=== PATIENT | male | born 1995 | race Caucasian/White ===

== ENCOUNTER 2022-11-02 16:53 | Inpatient (IN) | payer MEDICAID, SELFPAY ==
--- NOTE | 2022-11-02 17:03 | ED.C_ITS ---
HPI - Psych General: Chief Complaint: Psychiatric Symptoms Stated Complaint: 96 hour hold/voluntary Time Seen by Provider: 11/02/22 17:03 History of Present Illness: Mr Livingston is a 27-year-old male presenting to the emergency department for suicidal ideation and paranoia. Is unclear exactly how long has had symptoms however they have become more severe for at least the past year. Due to paranoia he has essentially been stuck in the trailer where he spent living. He does endorse occasional hallucinations with this and continued worsening paranoia. It is gotten to the point that he feels suicidal. At times he has difficulty with thoughts and has difficulty describing what he is feeling. Denies prior psychiatric hospitalizations or being on medication. Intensity of symptoms is severe. Course has worsened. No other specific changes in health, exacerbating, or alleviating factors identified. Duration: getting worse History of same: Yes Relieving factors: none Exacerbating factors: none Context: not taking psychiatric medications Associated psychiatric symptoms: suicidal ideation and racing thoughts Review of Systems General: Reports: 10 or more systems reviewed and unremarkable except in HPI and below PFSH ED PFSH: Medical History (Updated 11/14/22 @ 16:11 by Rohan Busch MD) No significant past medical history Surgical History (Updated 11/14/22 @ 16:11 by Rohan Busch MD) No significant past surgical history Physical Exam Const: COMMON NORMALS: alert GENERAL APPEARANCE: cooperative and well developed HENMT: COMMON NORMALS: normocephalic and atraumatic HEAD & SCALP: normocephalic and atraumatic Eye: COMMON NORMALS: conjunctivae normal CONJUNCTIVA: Yes conjunctivae normal SCLERA: sclerae normal Neck/C-Spine: COMMON NORMALS: supple GENERAL: Yes trachea midline Resp: COMMON NORMALS: clear to auscultation bilaterally EFFORT & INSPECTION: Yes able to speak in complete sentences AUSCULTATION: clear to auscultation bilaterally Cardio: COMMON NORMALS: regular rate and regular rhythm RATE: regular rate RHYTHM: regular rhythm GI: COMMON NORMALS: Soft to palpation PALPATION: Yes Soft to palpation and No Tenderness to palpation present (GI) PERCUSSION: normal to percussion Extremity: GENERAL: Yes normal exam except as noted and No edema Neuro: COMMON NORMALS: moves all extremities SENSORIUM/ORIENTATION: Yes alert and No Orientation impaired Psych: MOOD & AFFECT: Yes anxious and Yes fearful Course Vital Signs: Vital signs: Vital Signs Temperature 97.9 F 11/09/22 13:04 Pulse Rate 99 11/09/22 13:04 Respiratory Rate 17 11/09/22 13:04 Blood Pressure 137/81 11/09/22 13:04 Pulse Oximetry 98 11/09/22 13:04 Oxygen Delivery Me thod 11/08/22 20:24 MDM - Psych Medical Decision Making 27-year-old gentleman without known diagnosed psychiatric history presenting to the [facility] for metabolic evaluation. Patient is nontoxic and cooperative on exam. Affect is quite odd and at times is very difficult to identify specific course of symptoms. Last notable for mild hemoconcentration on hematologic panel. Metabolic panel without significant arrangement. ALT elevation of unclear significance, and absence of other symptoms likely nonspecific and can be further evaluated outpatient setting. Toxic ingestions negative. UDS only positive for THC. Given provided clinical history and physical exam there is no indication for imaging at this time. No recent laboratory studies for comparison. Patient given p.o. Ativan for anxiolysis. Given severity of symptoms in the context of undiagnosed mental illness the patient requires inpatient management for further psychiatric assessment, stabilization, and treatment. Most likely etiology of symptoms is unclear, perhaps major depression with psychotic features, other psychotic disorder, or schizophrenia. Based on ED evaluation at this point there is no obvious condition that would preclude the patient from inpatient management psychiatric concerns/symptoms. The results of ED evaluation were discussed with the patient including plan for admission due to requirement for level of care not available if discharged to prevent significant worsening/deterioration. Patient agreeable with plan. Discussed with psychiatry service who was agreeable to admit patient. Medical Records I reviewed the patient's medical records. Lab Data I reviewed the patient's lab results. 11/02/22 17:45 11/02/22 17:45 Laboratory Results WBC 11.5 10^3/uL (4.0-10.0) H 11/02/22 17:45 RBC 5.61 10^6/uL (4.1-5.3) H 11/02/22 17:45 Hgb 16.7 g/dL (11.7-16.6) H 11/02/22 17:45 Hct 48.4 % (42.0-52.0) 11/02/22 17:45 MCV 86.3 fl (80-94) 11/02/22 17:45 MCH 29.8 pg (28.0-34.0) 11/02/22 17:45 MCHC 34.5 g/dL (30.0-36.0) 11/02/22 17:45 RDW 12.4 % (12.1-15.1) 11/02/22 17:45 Plt Count 329 10^3/cmm (130-400) 11/02/22 17:45 MPV 9.0 fL (7.4-10.4) 11/02/22 17:45 Neut % (Auto) 75.2 % 11/02/22 17:45 Lymph % (Auto) 15.5 % 11/02/22 17:45 [place] % (Auto) 6.0 % 11/02/22 17:45 Eos % (Auto) 1.9 % 11/02/22 17:45 Baso % (Auto) 0.9 % 11/02/22 17:45 Neut # (Auto) 8.67 10^3/uL (1.8-7.7) H 11/02/22 17:45 Lymph # (Auto) 1.8 10^3/uL (0.8-4.8) 11/02/22 17:45 [place] # (Auto) 0.7 10^3/uL (0.2-0.9) 11/02/22 17:45 Eos # (Auto) 0.2 10^3/uL (0.0-0.8) 11/02/22 17:45 Baso # (Auto) 0.1 10^3/uL (0.0-0.1) 11/02/22 17:45 Nucleated RBC % (auto) 0 % 11/02/22 17:45 Nucleated RBCs # 0.0 /100WBC 11/02/22 17:45 Sodium 137 mmol/L (136-145) 11/02/22 17:45 Potassium 3.7 mmol/L (3.5-5.1) 11/02/22 17:45 Chloride 99 mmol/L (98-107) 11/02/22 17:45 Carbon Dioxide 23 mmol/L (22-29) 11/02/22 17:45 Anion Gap 18.7 (5-19) 11/02/22 17:45 BUN 11 mg/dL (6-20) 11/02/22 17:45 Creatinine 0.8 mg/dL (0.7-1.2) 11/02/22 17:45 GFR Calculation 115.1 mL/min (90-130) 11/02/22 17:45 Glucose 77 mg/dL (65-115) 11/02/22 17:45 Calculated Osmolality 282 mOsm/kg (285-295) L 11/02/22 17:45 Calcium 9.5 mg/dL (8.5-10.5) 11/02/22 17:45 Total Bilirubin 0.7 mg/dL (0.15-1.2) 11/02/22 17:45 AST 35 U/L (0-40) 11/02/22 17:45 ALT 74 U/L (0-41) H 11/02/22 17:45 Alkaline Phosphatase 73 U/L (40-130) 11/02/22 17:45 Total Protein 7.3 g/dL (6.6-8.7) 11/02/22 17:45 Albumin 4.6 g/dL (3.5-5.2) 11/02/22 17:45 Globulin 2.7 g/dL (1.3-4.6) 11/02/22 17:45 TSH 1.72 uIU/mL (0.27-4.20) 11/02/22 17:45 Salicylates < 0.3 mg/dL (3-10) L 11/02/22 17:45 Acetaminophen < 5.0 ug/mL (10-30) L 11/02/22 17:45 Ethyl Alcohol < 10 mg/dL (0-10) 11/02/22 17:45 Discharge Plan Discharge Patient Disposition: Admitted As Inpatient Admit Provider: Brandt Conrad Clinical Impression: Acute paranoia, Acute psychosis, Hallucinations Condition: Stable Discharge Diet: Regular Discharge Activity: Resume usual activity Coding Level of Care Code ED 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
[2022-11-02 17:04] VITALS: BP 175/114; PULSE 137; RESP 18; TEMP 36.9; O2SAT 97; BMI 40.3
[2022-11-02 18:10] LABS: Basophils # 0.1 10^3/uL (0.0-0.1); Basophils % 0.9 %; Eosinophils # 0.2 10^3/uL (0.0-0.8); Eosinophils % 1.9 %; Hematocrit 48.4 % (42.0-52.0); Hemoglobin 16.7 g/dL (11.7-16.6); Lymphocytes # 1.8 10^3/uL (0.8-4.8); Lymphocytes % 15.5 %; Mean Corpuscular HGB Conc 34.5 g/dL (30.0-36.0); Mean Corpuscular Hemoglobin 29.8 pg (28.0-34.0); Mean Corpuscular Volume 86.3 fl (80-94); Monocytes # 0.7 10^3/uL (0.2-0.9); Neutrophils # 8.67 10^3/uL (1.8-7.7); Neutrophils % 75.2 %; Nucleated Red Blood Cells % 0 %; Platelet Count 329 10^3/cmm (130-400); Red Blood Count 5.61 10^6/uL (4.1-5.3); Red Cell Distribution Width 12.4 % (12.1-15.1); White Blood Count 11.5 10^3/uL (4.0-10.0)
[2022-11-02 18:47] LABS: Alanine Aminotransferase 74 U/L (0-41); Albumin Level 4.6 g/dL (3.5-5.2); Alkaline Phosphatase 73 U/L (40-130); Anion Gap 18.7 (5-19); Aspartate Amino Transferase 35 U/L (0-40); Blood Urea Nitrogen 11 mg/dL (6-20); Calcium 9.5 mg/dL (8.5-10.5); Carbon Dioxide 23 mmol/L (22-29); Chloride 99 mmol/L (98-107); Globulin 2.7 g/dL (1.3-4.6); Glomerular Filtration Rate 115.1 mL/min (90-130); Glucose 77 mg/dL (65-115); Osmolality Calculated 282 mOsm/kg (285-295); Potassium 3.7 mmol/L (3.5-5.1); Sodium 137 mmol/L (136-145); Thyroid Stimulating Hormone 1.72 uIU/mL (0.27-4.20); Total Bilirubin 0.7 mg/dL (0.15-1.2); Total Protein 7.3 g/dL (6.6-8.7)
[2022-11-02 18:58] LABS: Acetaminophen < 5.0 ug/mL (10-30); Alcohol Level < 10 mg/dL (0-10); Salicylate < 0.3 mg/dL (3-10)
[2022-11-02 19:25] VITALS: BP 138/98; PULSE 96; RESP 18; O2SAT 97
[2022-11-02 20:30] VITALS: BP 148/98; PULSE 116; RESP 18; TEMP 36.4; O2SAT 96
[2022-11-02 21:28] LABS: Amphetamines Screen Urine Negative (Negative); Barbiturates Screen Urine Negative (Negative); Benzodiazepines Screen Urine Negative (Negative); Cocaine Screen Urine Negative (Negative); Opiate Screen Urine Negative (Negative); PCP Screen Urine Negative (Negative); THC Screen Urine Positive (Negative)
[2022-11-02 22:00] VITALS: BP 148/98; PULSE 116; RESP 18; TEMP 36.4; O2SAT 96
[2022-11-02] MEDS: nicotine 2 mg Gum BUCCAL (23:35)
[2022-11-02] MEDS: hyDROXYzine 25 mg Capsule 50 MG PO (23:41)
[2022-11-02] MEDS: trazodone 50 mg Tablet PO (23:41)
[2022-11-03] MEDS: nicotine 2 mg Gum BUCCAL (09:58)
--- NOTE | 2022-11-03 12:49 | P.NPUHP_ITS ---
Providers/Chief Complaint Admitting Physician: Brandt Conrad MD Chief Complaint: 96 hour hold/voluntary HPI NPU History of Present Illness Gustavo Livingston is a 27 year old male who reports no previous history of inpatient psychiatric treatment who reports that he was brought to the emergency department by his mother with suicidal ideation and increased paranoia. Patient reports that he is been having a bad feeling like something bad was going to happen and states that he has had this uncomfortable feeling for several years. He reports that on October 27, 2022 he had a major discovery that he describes as being life-changing. He states that he feels that he has 2 different groups raging war and has had with 1 group stating that he needs to keep the information secret while another group is telling him to divulge the information. He states that he currently feels that he cannot divulge all of the information out of fear that the government will come after him. He has reported that he feels strongly like someone is trying to frame him. He reports that others here have the ability somehow to read his mind and can somehow influence him. He had reported that prior to October 27, he had simply felt that something was wrong but the information and the thoughts and believes regarding the 2 warning parties in his mind revealed themselves on that day. He had reported that this information has been extremely stressful to manage and that he had been thinking about suicide but minimized any plan. He did state that he has been struggling with anhedonia, amotivation, depressed mood and i ncreased feelings of hopelessness for the past week. Patient reports having increased problems with concentration and states that he is distracted easily. He reports that he is not this nearly hearing 2 voices but did report that he has been having some intrusive thoughts and states that he now understands their intention. The patient denied any visual hallucinations. He reported that he had been sleeping excessively and had been feeling like sleeping all day. He had reported occasional alcohol use and occasional marijuana use. He had denied any other drug use recently. He denied any history of willian. He has reported having increased anxiety and worry regarding these thoughts. He had reported that he had received some recent information regarding a father that he has no contact with that suggested that his father had had some undue influence on him for several years and reported that he was uncertain about revealing this information to the telegraphic typewriter installer of this note out of concern that he may be framed or incarcerated. Past psychiatric history: Patient has reported no previous inpatient hospitalization. He had reported in the past having seen a psychiatrist briefly and a therapist 1 other time. He had reported having been tried previously on Prozac for depression but was not specific about how long ago he had been on this medication. Current medications: None Surgeries: Left knee surgery Allergies: Clarithromycin Medical history: None Legal history: None Family psychiatric history: None Drug and alcohol history: See above, history of half pack to 1 pack/day smoker Social history: Patient was born in [facility] and raised by his mother. He reports that he had never known his biological father. He states that he has an older half-sister and states that he had an older brother and older sister who had in a fire when he was in preschool. He denies any history of sexual physical or emotional abuse. 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 He reports that he is never been and has no children. He is currently not dating and describes himself as an atheist. He currently lives with his mother and [place]. Meds NPU Home Medications Medication Instructions Recorded Confirmed Last Taken Type No Known Home Medications 11/03/22 11/03/22 Unknown History Allergies Allergy/AdvReac Type Severity Reaction Status Date / Time clarithromycin [From Biaxin] Allergy ALGY-Rash Verified 11/02/22 18:58 Mental Status Exam MSE Comments: Patient is a disheveled white male who appeared his stated age with poor hygiene and a normal gait. There was no evidence of any abnormal involuntary motor movements tics or tremors appreciated. His eye contact was variable. Speech was somewhat slow and deliberate with some increased latency of speech noted at times. His mood was described as depressed. His affect was blunted. His thought process was linear but at times illogical. His thought content showed clear evidence of delusional thinking with active paranoia and clear ideas of reference. There was evidence of continued thought blocking throughout the interview and he did appear to be responding to internal stimuli. His attention span appeared poor. His recent remote memory were not tested formally. His insight was poor. His judgment appeared to be poor. His impulse control was guarded. Vitals/I&O/Wt Last Vital Signs Temp 97.6 F 11/02/22 22:00 Pulse 116 H 11/02/22 22:00 Resp 18 11/02/22 22:00 BP 148/98 11/02/22 22:00 Pulse Ox 96 11/02/22 22:00 O2 Del Method 11/02/22 22:48 Weight last 48 hrs Weight 113.398 kg Data NPU 11/02/22 17:45 11/02/22 17:45 A&P Assessment and plan (1) Psychotic disorder with delusions: (2) Depressive disorder: Plan Patient is a 27-year-old white male with a history of reported depression in the past who appears to have been having anacute psychotic break with unclear triggers but clear reports of decline in functioning particularly worse over the last week but possibly gradually over a longer period of time. #1. 15-minute checks for safety on the unit. #2. Encourage sober living treatment on the unit at the highest level of care to which the patient is willing to commit. 3. Engage patient in individual group and milieu therapy. #4. Patient was agreeable to a trial of Abilify to target psychotic symptoms. Risks and benefits of medication were explained to the patient who was agreeable. Involuntary Hold Information 96 Hour Hold: 96 Hour Involuntary Admission: No Attestations NPU Medical Necessity Statement*: Inpatient hospitalization is medically necessary at this time and the clinically appropriate intervention at this time. We will monitor medications and make changes as indicated. The patient will be in the hospital for over 2 midnights. Is likely length of stay is 7 to 10 days. Coding Level of Care Code New Pt Acute Code for Chg Fwd Patient Type New History Problem Focused Exam Problem Focused Medical Decision Making Straight Forward Diagnoses Psychotic disorder with delusions F29 Depressive disorder F32.A
[2022-11-03 14:00] VITALS: BP 124/84; PULSE 103; RESP 18; TEMP 37; O2SAT 96
[2022-11-03] MEDS: ARIPiprazole 10 mg Tablet 5 MG PO (14:27)
--- NOTE | 2022-11-03 17:41 | PC.NURSE ---
Patient in room at present. Denies SI/HI; AVH. Started on Abilify %mg as ordered per MD. Nurse educated and monitored for adverse reation. No s/sx of adverse reaction noted.
[2022-11-03 22:00] VITALS: RESP 18
[2022-11-04] MEDS: nicotine 2 mg Gum BUCCAL ×2 (08:03→18:10)
[2022-11-04] MEDS: ARIPiprazole 10 mg Tablet 5 MG PO ×2 (08:27→15:43)
[2022-11-04 14:00] VITALS: BP 123/82; PULSE 87; RESP 16; TEMP 37.2; O2SAT 96
--- NOTE | 2022-11-04 14:51 | P.NPUPN_ITS ---
Subjective NPU Subjective: Gustavo is a 27-year-old white male admitted with active paranoia increased depression suicidal ideation and possible auditory hallucinations. He was started on Abilify last night with no reported side effects. He continued to report that he was uncertain about revealing information to the curriculum writer of this note out of concern that he could increase his likelihood of being in trouble with the government. He had reported that he had continued to feel suspicious of others intentions. He had reported that he had had an extended period over the last 2 years of feeling as if something was wrong but stated that the 2 competing parties in his mind were present and he was uncertain as to whether he should reveal this information or keep it hidden. Mental Status Exam MSE Comments: Patient is a disheveled white male who appeared his stated age with fair hygiene and a normal gait. There was no evidence of any abnormal involuntary motor movements tics or tremors appreciated. His eye contact was variable. Speech was normal in rate, and deliberate with some increased latency of speech noted at times. His mood was described as anxious. His affect was blunted. His thought process was linear but at times illogical. His thought content showed clear evidence of delusional thinking with active paranoia and clear ideas of reference. There was evidence of occasional thought blocking throughout the interview and he did appear to be responding to internal stimuli. His attention span appeared poor. His recent remote memory were not tested formally. His insight was poor. His judgment appeared to be poor. His impulse control was guarded. Vitals/I&O/Wt Last Vital Signs Temp 98.6 F 11/03/22 14:00 Pulse 103 H 11/03/22 14:00 Resp 18 11/03/22 22:00 BP 124/84 11/03/22 14:00 Pulse Ox 96 11/03/22 14:00 O2 Del Method 11/03/22 14:00 Weight last 48 hrs Weight 113.398 kg Weight 113.398 kg Data NPU 11/02/22 17:45 11/02/22 17:45 A&P Assessment and plan (1) Psychotic disorder with delusions: (2) Depressive disorder: Plan Patient is a 27-year-old white male with a history of reported depression in the past who appears to have been having anacute psychotic break with unclear triggers but clear reports of decline in functioning particularly worse over the last week but possibly gradually over a longer period of time. #1. 15-minute checks for safety on the unit. #2. Encourage sober living treatment on the unit at the highest level of care to which the patient is willing to commit. 3. Engage patient in individual group and milieu therapy. #4. Increase Abilify to 10mg in am Involuntary Hold Information 96 Hour Hold: 96 Hour Involuntary Admission: No Attestations NPU Medical Necessity Statement*: Inpatient hospitalization is medically necessary at this time and the clinically appropriate intervention at this time. We will monitor medications and make changes as indicated. The patient's likely length of stay is 7 to 10 days. Coding Level of Care Code Established Pt Acute Code for Chg Fwd Patient Type Established History Problem Focused Exam Problem Focused Medical Decision Making Straight Forward Diagnoses Psychotic disorder with delusions F29 Depressive disorder F32.A
--- NOTE | 2022-11-04 16:40 | PC.NURSE ---
At 1540 pt was informed the MD had directed he have an additional 5 mg of Abilify today as he was increasing the pt's dose to 10 mg/day. Pt verbalized his understanding. He had no questions about his medication. Remains in day room watching tv.
[2022-11-04 22:00] VITALS: BP 136/82; PULSE 91; RESP 18; TEMP 36.7; O2SAT 97
[2022-11-05 06:00] VITALS: BP 128/81; PULSE 76; RESP 18; TEMP 36.7; O2SAT 97
[2022-11-05] MEDS: ARIPiprazole 10 mg Tablet PO (08:39)
[2022-11-05] MEDS: nicotine 2 mg Gum BUCCAL ×2 (08:50→14:00)
[2022-11-05 14:00] VITALS: BP 137/96; PULSE 75; RESP 18; TEMP 37.1; O2SAT 94
--- NOTE | 2022-11-05 16:14 | P.NPUPN_ITS ---
Subjective NPU Subjective: Gustavo is a 27-year-old white male admitted with active paranoia increased depression suicidal ideation and possible auditory hallucinations. The patient reported no difference currently on his medications. He reported no side effects from the medication. He states that he continued to be distracted by his thoughts. Collateral information provided by the mother had revealed that the patient had been having some diminished level of functioning over the past 2 years with increased isolation and greater paranoia noted even prior to the last 10 days. He had continue to report stress regarding government targeting as he stated that his information would be frowned upon by the [employer] and he did not wish to reveal that information at this time but stated that his father may have been involved in something. Mental Status Exam MSE Comments: Patient is a disheveled white male who appeared his stated age with fair hygiene and a normal gait. There was no evidence of any abnormal in voluntary motor movements tics or tremors appreciated. His eye contact was variable. Speech was normal in rate, and deliberate with some increased latency of speech noted at times and monotone in quality. His mood was described as okay. His affect was blunted and mood incongruent.. His thought process was linear but at times illogical. His thought content showed clear evidence of delusional thinking with active paranoia and clear ideas of reference. There was evidence of occasional thought blocking throughout the interview and he did appear to be responding to internal stimuli. His attention span appeared poor. His recent remote memory were not tested formally. His insight was poor. His judgment appeared to be poor. His impulse control was guarded. Vitals/I&O/Wt Last Vital Signs Temp 98.8 F 11/05/22 14:00 Pulse 75 11/05/22 14:00 Resp 18 11/05/22 14:00 BP 137/96 11/05/22 14:00 Pulse Ox 94 11/05/22 14:00 O2 Del Method 11/04/22 22:00 Weight last 48 hrs Weight 113.398 kg Data NPU 11/02/22 17:45 11/02/22 17:45 A&P Assessment and plan (1) Psychotic disorder with delusions: (2) Depressive disorder: Plan Patient is a 27-year-old white male with a history of reported depression in the past who appears to have been having anacute psychotic break with unclear triggers but clear reports of decline in functioning particularly worse over the last week but possibly gradually over a longer period of time. #1. 15-minute checks for safety on the unit. #2. Encourage sober living treatment on the unit at the highest level of care to which the patient is willing to commit. 3. Engage patient in individual group and milieu therapy. #4. Increase Abilify to 15mg tommorow. Involuntary Hold Information 96 Hour Hold: 96 Hour Involuntary Admission: No Attestations NPU Medical Necessity Statement*: Inpatient hospitalization is medically necessary at this time and the clinically appropriate intervention at this time. We will monitor medications and make changes as indicated. The patient's likely length of stay is 7 to 10 days. Coding Level of Care Code Established Pt Acute Code for Chg Fwd Patient Type Established History Problem Focused Exam Problem Focused Medical Decision Making Straight Forward Diagnoses Psychotic disorder with delusions F29 Depressive disorder F32.A
[2022-11-05 21:13] VITALS: BP 131/95; PULSE 86; RESP 18; TEMP 36.9; O2SAT 94
[2022-11-06] MEDS: ARIPiprazole 10 mg Tablet PO (08:53)
[2022-11-06] MEDS: nicotine 2 mg Gum BUCCAL ×2 (08:54→20:10)
[2022-11-06 14:00] VITALS: BP 122/85; PULSE 80; RESP 18; TEMP 37.1; O2SAT 96
--- NOTE | 2022-11-06 17:29 | W.PM.NPUPNS ---
Subjective NPU Subjective: Gustavo is a 27-year-old white male admitted with active paranoia increased depression suicidal ideation and possible auditory hallucinations. He reports improved ability to tolerate stress and states that he has been less worried by the thoughts in his head. He stated that he had been feeling much better. He reported no suicidal thoughts. He had complained of constipation over the last few days. He had reported having less worry about government influence and continued to report that he had been indeed isolating over the past several years at home. He had been able to attend groups today without difficulty. He had endorsed to staff some thoughts of d?j? vu and states that at times he had felt that his life had been preplanned. Mental Status Exam MSE Comments: Patient is a white male who appeared his stated age with fair hygiene and a normal gait. There was no evidence of any abnormal involuntary motor movements tics or tremors appreciated. His eye contact was variable. Speech was normal in rate, and some mild increased latency in speech noted at times and monotone in quality. His mood was described as better. His affect was blunted and mood incongruent.. His thought process was linear and more logical today. His thought content showed clear evidence of paranoia but there did appear to be some diminishment in regards to ideas of reference. He did not appear to be responding to internal stimuli. His attention span appeared better. His recent remote memory were not tested formally. His insight was poor. His judgment appeared to be poor. His impulse control was guarded. Vitals/I&O/Wt Last Vital Signs Temp 98.8 F 11/06/22 14:00 Pulse 80 11/06/22 14:00 Resp 18 11/06/22 14:00 BP 122/85 11/06/22 14:00 Pulse Ox 96 11/06/22 14:00 O2 Del Method 11/05/22 21:13 Data NPU 11/02/22 17:45 11/02/22 17:45 A&P Assessment and plan (1) Psychotic disorder with delusions: (2) Depressive disorder: Plan Patient is a 27-year-old white male with a history of reported depression in the past who appears to have been having an acute psychotic break with unclear triggers but clear reports of decline in functioning particularly worse over the last week but possibly gradually over a longer period of time. #1. 15-minute checks for safety on the unit. #2. Encourage sober living treatment on the unit at the highest level of care to which the patient is willing to commit. 3. Engage patient in individual group and milieu therapy. #4. Increase Abilify to 15mg tommorow. Appears to be showing some improvement already. Involuntary Hold Information 96 Hour Hold: 96 Hour Involuntary Admission: No Attestations NPU Medical Necessity Statement*: Inpatient hospitalization is medically necessary at this time and the clinically appropriate intervention at this time. We will monitor medications and make changes as indicated. The patient's likely length of stay is 7 to 10 days. Coding Level of Care Code Established Pt Acute Code for Chg Fwd Patient Type Established History Problem Focused Exam Problem Focused Medical Decision Making Straight Forward Diagnoses Psychotic disorder with delusions F29 Depressive disorder F32.A
[2022-11-06] MEDS: magnesium hydroxide 30 mL UDC PO (20:31)
[2022-11-06 20:51] VITALS: BP 133/95; PULSE 98; RESP 18; TEMP 36.9; O2SAT 95
[2022-11-07] MEDS: ARIPiprazole 10 mg Tablet 15 MG PO (08:50)
[2022-11-07 14:00] VITALS: BP 128/87; PULSE 89; RESP 18; TEMP 37.2; O2SAT 96
--- NOTE | 2022-11-07 17:00 | W.PM.NPUPNS ---
Subjective NPU Subjective: Gustavo is a 27-year-old white male admitted with active paranoia increased depression suicidal ideation and possible auditory hallucinations. Patient had reported feeling better and stated he was hopeful to return soon. He denied any depression. He had reported a relief of constipation with medication. He reports that he has been feeling more motivated and states that he has been less worried about being in trouble with the government. He stated that he had been pleased that his thoughts had been clear and acknowledged having a problem with his thoughts for a greater period of time possibly up to 2 years with reports of increased worry about the conflict and has had beginning approximately 10 days ago. He denied hearing any voices at this time although staff had stated that the patient at times did appear to be preoccupied by his thoughts. He had been able to attend groups without any difficulty. Mental Status Exam MSE Comments: Patient is a white male who appeared his stated age with fair hygiene and a normal gait. He was pleasant and cooperative on interview. There was no evidence of any abnormal involuntary motor movements tics or tremors appreciated. His eye contact was variable. Speech was normal in rate, rhythm, and no increase in speech latency was appreciated. His mood was described as better. His affect remains somewhat flat.. His thought process was linear and more logical today. His thought content showed less evidence of paranoia and less self-referential ideas noted. He did not appear to be responding to internal stimuli. His attention span appeared better. His recent remote memory were not tested formally. His insight was improving. His judgment appeared to be poor. His impulse control was guarded. Vitals/I&O/Wt Last Vital Signs Temp 98.9 F 11/07/22 14:00 Pulse 89 11/07/22 14:00 Resp 18 11/07/22 14:00 BP 128/87 11/07/22 14:00 Pulse Ox 96 11/07/22 14:00 O2 Del Method 11/05/22 21:13 Data NPU 11/02/22 17:45 11/02/22 17:45 A&P Assessment and plan (1) Psychotic disorder with delusions: (2) Depressive disorder: Plan Patient is a 27-year-old white male with a history of reported depression in the past who appears to have been having an acute psychotic break with unclear triggers but clear reports of decline in functioning particularly worse over the last week but possibly gradually over a longer period of time. #1. 15-minute checks for safety on the unit. #2. Encourage sober living treatment on the unit at the highest level of care to which the patient is willing to commit. 3. Engage patient in individual group and milieu therapy. #4. Continue Abilify at 15mg/day. Appears to be showing some improvement , discharge soon. Involuntary Hold Information 96 Hour Hold: 96 Hour Involuntary Admission: No Attestations NPU Medical Necessity Statement*: Inpatient hospitalization is medically necessary at this time and the clinically appropriate intervention at this time. We will monitor medications and make changes as indicated. The patient's likely length of stay is 1-2 days. Coding Level of Care Code Established Pt Acute Code for Chg Fwd Patient Type Established History Problem Focused Exam Problem Focused Medical Decision Making Straight Forward Diagnoses Psychotic disorder with delusions F29 Depressive disorder F32.A
[2022-11-07 21:03] VITALS: BP 137/89; PULSE 100; RESP 17; TEMP 37; O2SAT 95
[2022-11-07] MEDS: nicotine 2 mg Gum BUCCAL (22:24)
[2022-11-08] MEDS: ARIPiprazole 10 mg Tablet 15 MG PO (09:23)
[2022-11-08] MEDS: nicotine 2 mg Gum BUCCAL ×2 (09:24→17:45)
[2022-11-08 14:00] VITALS: BP 137/87; PULSE 95; RESP 18; TEMP 37.2; O2SAT 96
--- NOTE | 2022-11-08 20:14 | W.PM.NPUPNS ---
Subjective NPU Subjective: Patient presented today reporting that he has improved well and he chronicled the medication administration and increase in dosing during the hospitalization. He reports improvement in symptoms and identified that the thoughts he was having upon admission were irrational. He discussed feeling better and wanting to return to work and we discussed the likelihood of discharge in the next 48 hours. Mental Status Exam MSE Comments: This is an overweight versus obese white male in hospital scrubs with adequate grooming and eye contact. No abnormal movements except for mild psychomotor retardation. Cooperative with exam in no acute distress. Speech was normal in rate, rhythm, volume and no increase in speech latency was appreciated. His mood was described as better. His affect remains somewhat flat but appear euthymic trending. His thought process was linear and more logical today. His thought content showed less evidence of paranoia and less self-referential ideas noted. He was able to identify the delusional suicidal thoughts he was having as irrational and he did not appear to be responding to internal stimuli. His attention and concentration appeared appropriate and his recent remote memory appeared fair but neither were tested formally. His insight and judgment were improving his impulse control was was appropriate on the unit. Vitals/I&O/Wt Last Vital Signs Temp 97.4 F L 11/08/22 20:24 Pulse 112 H 11/08/22 20:24 Resp 17 11/08/22 20:24 BP 137/88 11/08/22 20:24 Pulse Ox 98 11/08/22 20:24 O2 Del Method 11/08/22 20:24 Data NPU 11/02/22 17:45 11/02/22 17:45 A&P Assessment and plan (1) Psychotic disorder with delusions: (2) Depressive disorder: Plan Patient is a 27-year-old white male with a history of reported depression in the past who appears to have been having an acute psychotic break with unclear triggers but clear reports of decline in functioning particularly worse over the last week but possibly gradually over a longer period of time. 1. 15-minute checks for safety on the unit. 2. Encourage sober living treatment on the unit at the highest level of care to which the patient is willing to commit. 3. Engage patient in individual group and milieu therapy. 4. Continue Abilify at 15mg/day. Appears to be showing some improvement. 5. Tentative plan for discharge in the morning. Involuntary Hold Information 96 Hour Hold: 96 Hour Involuntary Admission: No Attestations NPU Medical Necessity Statement*: Inpatient hospitalization is medically necessary at this time and the clinically appropriate intervention at this time. We will monitor medications and make changes as indicated. Plan for discharge in the morning. Coding Level of Care Code Acute Code for Chg Fwd Diagnoses Psychotic disorder with delusions F29 Depressive disorder F32.A
[2022-11-08 20:24] VITALS: BP 137/88; PULSE 112; RESP 17; TEMP 36.3; O2SAT 98
[2022-11-09] MEDS: ARIPiprazole 10 mg Tablet 15 MG PO (09:14)
[2022-11-09] MEDS: nicotine 2 mg Gum BUCCAL (11:16)
[2022-11-09 13:04] VITALS: BP 137/81; PULSE 99; RESP 17; TEMP 36.6; O2SAT 98
--- NOTE | 2022-11-09 13:05 | P.NPUDS_ITS ---
Diagnoses at Discharge Discharge Diagnosis (1) Psychotic disorder with delusions: Status: Acute (2) Depressive disorder: Status: Acute Reason for Visit Reason for Visit: 96 hour hold/voluntary Brief History: History of Present Illness Gustavo Livingston is a 27 year old male who reports no previous history of inpatient psychiatric treatment who reports that he was brought to the emergency department by his mother with suicidal ideation and increased paranoia. Patient reports that he is been having a bad feeling like something bad was going to happen and states that he has had this uncomfortable feeling for several years. He reports that on October 27, 2022 he had a major discovery that he describes as being life-changing. He states that he feels that he has 2 different groups raging war and has had with 1 group stating that he needs to keep the information secret while another group is telling him to divulge the information. He states that he currently feels that he cannot divulge all of the information out of fear that the government will come after him. He has reported that he feels strongly like someone is trying to frame him. He reports that others here have the ability somehow to read his mind and can somehow influence him. He had reported that prior to October 27, he had simply felt that something was wrong but the information and the thoughts and believes regarding the 2 warning parties in his mind revealed themselves on that day. He had reported that this information has been extremely stressful to manage and that he had been thinking about suicide but minimized any plan. He did state that he has been struggling with anhedonia, amotivation, depressed mood and increased feelings of hopelessness for the past week. Patient reports having increased problems with concentration and states that he is distracted easily. He reports that he is not this nearly hearing 2 voices but did report that he has been having some intrusive thoughts and states that he now understands their intention. The patient denied any visual hallucinations. He reported that he had been sleeping excessively and had been feeling like sleeping all day. He had reported occasional alcohol use and occasional marijuana use. He had denied any other drug use recently. He denied any history of willian. He has reported having increased anxiety and worry regarding these thoughts. He had reported that he had received some recent information regarding a father that he has no contact with that suggested that his father had had some undue influence on him for several years and reported that he was uncertain about revealing this information to the field underwriter of this note out of concern that he may be framed or incarcerated. Past psychiatric history: Patient has reported no previous inpatient hospitalization. He had reported in the past having seen a psychiatrist briefly and a therapist 1 other time. He had reported having been tried previously on Prozac for depression but was not specific about how long ago he had been on this medication. Current medications: None Surgeries: Left knee surgery Allergies: Clarithromycin Medical history: None Legal history: None Family psychiatric history: None Drug and alcohol history: See above, history of half pack to 1 pack/day smoker Social history: Patient was born in [facility] and raised by his mother. He reports that he had never known his biological father. He states that he has an older half-sister and states that he had an older brother and older sister who had in a fire when he was in preschool. He denies any history of sexual physical or emotional abuse. 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 He reports that he is never been and has no children. He is currently not dating and describes himself as an atheist. He currently lives with his mother and [place]. Hospital Course Hospital Course He quickly acclimated to the individual, group and milieu therapies provided. He was started on Abilify 5 mg and that was titrated to 15 mg po qdaily. He demonstrated significant improvement. He worked with the treatment team for discharge planning and follow up. During the hospitalization, patient had routine laboratory studies which were within normal limits except for few outliers.? Additionally there was a general medical evaluation which was also within normal limits and revealed no new acute processes. Discharge Summary: At the time of discharge, he denied psychosis or lethality.? Mood and anxiety were well managed.? Patient endorsed a plan to avoid all drugs of abuse and follow-up with the aftercare recommendations of the treatment team.? Patient was evaluated and deemed to be absent credible lethality, and had achieved the maximum benefit from an inpatient hospitalization, so was discharged. Involuntary Hold Information 96 Hour Hold: 96 Hour Involuntary Admission: No Mental Status Exam MSE Comments: This is an overweight versus obese white male in hospital scrubs with adequate grooming and eye contact. No abnormal movements. Cooperative with exam in no acute distress. Speech was normal in rate, rhythm, volume and no increase in speech latency was appreciated. His mood was described as better. His affect is euthymic. His thought process was linear and more logical today. His thought content showed less evidence of paranoia and less self-referential ideas noted. He was able to identify the delusional suicidal thoughts he was having as irrational and he did not appear to be responding to internal stimuli. His attention and concentration appeared appropriate and his recent remote memory appeared fair but neither were tested formally. His insight and judgment were improving his impulse control was was appropriate on the unit. Discharge Data Studies Completed and Pending: Laboratory Results WBC 11.5 10^3/uL (4.0 -10.0) H 11/02/22 17:45 RBC 5.61 10^6/uL (4.1 -5.3) H 11/02/22 17:45 Hgb 16.7 g/dL (11.7-1 6.6) H 11/02/22 17:45 Hct 48.4 % (42.0-52.0 ) 11/02/22 17:45 MCV 86.3 fl (80-94) 11/02/22 17:45 MCH 29.8 pg (28.0-34. 0) 11/02/22 17:45 MCHC 34.5 g/dL (30.0-3 6.0) 11/02/22 17:45 RDW 12.4 % (12.1-15.1 ) 11/02/22 17:45 Plt Count 329 10^3/cmm (130 -400) 11/02/22 17:45 MPV 9.0 fL (7.4-10.4) 11/02/22 17:45 Neut % (Auto) 75.2 % 11/02/22 17:45 Lymph % (Auto) 15.5 % 11/02/22 17:45 [place] % (Auto) 6.0 % 11/02/22 17:45 Eos % (Auto) 1.9 % 11/02/22 17:45 Baso % (Auto) 0.9 % 11/02/22 17:45 Neut # (Auto) 8.67 10^3/uL (1.8 -7.7) H 11/02/22 17:45 Lymph # (Auto) 1.8 10^3/uL (0.8- 4.8) 11/02/22 17:45 [place] # (Auto) 0.7 10^3/uL (0.2- 0.9) 11/02/22 17:45 Eos # (Auto) 0.2 10^3/uL (0.0- 0.8) 11/02/22 17:45 Baso # (Auto) 0.1 10^3/uL (0.0- 0.1) 11/02/22 17:45 Nucleated RBC % (a uto) 0 % 11/02/22 17:45 Nucleated RBCs # 0.0 /100WBC 11/02/22 17:45 Sodium 137 mmol/L (136-1 45) 11/02/22 17:45 Potassium 3.7 mmol/L (3.5-5 .1) 11/02/22 17:45 Chloride 99 mmol/L (98-107 ) 11/02/22 17:45 Carbon Dioxide 23 mmol/L (22-29) 11/02/22 17:45 Anion Gap 18.7 (5-19) 11/02/22 17:45 BUN 11 mg/dL (6-20) 11/02/22 17:45 Creatinine 0.8 mg/dL (0.7-1. 2) 11/02/22 17:45 GFR Calculation 115.1 mL/min (90- 130) 11/02/22 17:45 Glucose 77 mg/dL (65-115) 11/02/22 17:45 Calculated Osmolal ity 282 mOsm/kg (285- 295) L 11/02/22 17:45 Calcium 9.5 mg/dL (8.5-10 .5) 11/02/22 17:45 Total Bilirubin 0.7 mg/dL (0.15-1 .2) 11/02/22 17:45 AST 35 U/L (0-40) 11/02/22 17:45 ALT 74 U/L (0-41) H 11/02/22 17:45 Alkaline Phosphata se 73 U/L (40-130) 11/02/22 17:45 Total Protein 7.3 g/dL (6.6-8.7 ) 11/02/22 17:45 Albumin 4.6 g/dL (3.5-5.2 ) 11/02/22 17:45 Globulin 2.7 g/dL (1.3-4.6 ) 11/02/22 17:45 TSH 1.72 uIU/mL (0.27 -4.20) 11/02/22 17:45 Salicylates < 0.3 mg/dL (3-10 ) L 11/02/22 17:45 Urine Opiates Scre en Negative ng/mL (N egative) 11/02/22 19:30 Acetaminophen < 5.0 ug/mL (10-3 0) L 11/02/22 17:45 Ur Barbiturates Sc reen Negative ng/mL (N egative) 11/02/22 19:30 Ur Phencyclidine S crn Negative ng/mL (N egative) 11/02/22 19:30 Ur Amphetamines Sc reen Negative ng/mL (N egative) 11/02/22 19:30 U Benzodiazepines Scrn Negative ng/mL (N egative) 11/02/22 19:30 Urine Cocaine Scre en Negative ng/mL (N egative) 11/02/22 19:30 U Marijuana (THC) Screen Positive ng/mL (N egative) H 11/02/22 19:30 Ethyl Alcohol < 10 mg/dL (0-10) 11/02/22 17:45 Vitals: Last Vital Signs Temp 97.4 F L 11/08/22 20:24 Pulse 112 H 11/08/22 20:24 Resp 17 11/08/22 20:24 BP 137/88 11/08/22 20:24 Pulse Ox 98 11/08/22 20:24 O2 Del Method 11/08/22 20:24 Discharge Plan Discharge Patient Disposition: Home Condition: Stable Prescriptions: New aripiprazole 15 mg tablet 15 mg PO DAILY 30 Days Qty: 30 1RF No Action No Known Home Medications Discharge Orders: Discharge Order (Routine); Ordered 11/09/22 Ordered By: Lalo Coyne Referrals: [facility] [Outside] - 11/12/22 8:30 am (Initial appointment.) Discharge Diet: Regular Discharge Activity: Resume usual activity Patient Instructions: Aripiprazole (By mouth) (Abilify, Abilify Discmelt), Help Prevent Suicide (DC), Opioid Safety Discharge Attestations NPU Time Spent in Discharge Care*: less than 30 min Specific Discharge Activities: Specific discharge activities: educating patient, discussing with child support case officer/social workers/dc planners, document ing/other paperwork and evaluating patient/reviewing data Coding Level of Care Code Acute Chg FW DC note Diagnoses Psychotic disorder with delusions F29 Depressive disorder F32.A
== END 2022-11-09 13:21 | disposition home or self-care (01) | DRG 885 ==
LOC: ER 18:28 → NP 18:42
PROVIDERS: Admitting Provider Psychiatry & Neurology Psychiatry; Emergency Provider Emergency Medicine; Visit Provider Psychiatry & Neurology Psychiatry
DX: F22 Delusional disorders (principal); F23 Brief psychotic disorder; R45.851 Suicidal ideations; F32.A Depression, unspecified; F17.200 Nicotine dependence, unspecified, uncomplicated
CPT/HCPCS: 80053; 80306; 80307; 84443; 85025; 97150; 97165; 99285

== ENCOUNTER 2023-11-12 12:12 | Inpatient (IN) | payer MEDICAID, SELFPAY ==
[2023-11-12] VITALS (7 sets, daily range): BP systolic 137–200; BP diastolic 85–124; PULSE 82–112; RESP 16–20; TEMP 36.3–37.4; O2SAT 97–99; BMI 40.3
--- NOTE | 2023-11-12 12:23 | ED.C_ITS ---
HPI - Psych 2 General: Chief Complaint: Psychiatric Symptoms Stated Complaint: MHE Time Seen by Provider: 11/12/23 12:13 Source: patient Mode of arrival: ambulatory Limitations: no limitations History of Present Illness: 28-year-old male who states that he has been extremely paranoid he thinks that the government is out to get him he states that over the last 8 days he also believes that online games dinners have been tortured that he has been playing against. States he supposed to be on Abilify but has not been taking his Abilify appears quite anxious here as well denies SI or HI Associated symptoms: Reports delusions; Deny depression Review of Systems 2 Const: Denies: fever(s), chills, body aches or change in appetite ENMT: Denies: throat pain or dental pain Card: Denies: chest pain Resp: Denies: dyspnea GI: Denies: abdominal pain, nausea, vomiting or diarrhea Musc: Denies: neck pain or back pain Skin/Breast: Denies: rash Neuro: Denies: headache(s) Psych: Reports: paranoia; Denies: depression PFSH ED 2 PFSH: Medical History Cannabis use disorder, severe, dependence Alcohol use disorder, mild, abuse Psychiatric care No significant past medical history Surgical History No significant past surgical history Physical Exam 2 Const: COMMON NORMALS: no acute distress, patient oriented x3 and healthy appearing HENMT: COMMON NORMALS: normocephalic and atraumatic HEAD & SCALP: n ormocephalic and atraumatic Neck/C-Spine: COMMON NORMALS: full ROM and supple Chest: COMMONS NORMALS: normal inspection of the chest Resp: COMMON NORMALS: normal respiratory effort Cardio: COMMON NORMALS: regular rhythm and No murmurs present (Cardio) R ATE: tachycardic RHYTHM: regular rhythm Extremity: COMMON NORMALS: normal to inspection and full ROM Neuro: COMMON NORMALS: patient oriented x3, moves all extremities and no focal motor deficits Psych: COMMON NORMALS: mental status grossly normal, Normal thought process present and cooperative THOUGHT PROCESS: Normal thought process present T HOUGHT CONTENT: Yes delusions Skin: COMMON NORMALS: no rashes or lesions noted and no wounds GENERAL SKIN EXAM: no rashes or lesions noted Course 2 Vital Signs: Vital signs: Vital Signs Temperature 98.4 F 11/12/23 12:17 Pulse Rate 112 H 11/12/23 12:17 Respiratory Rate 20 H 11/12/23 12:17 Blood Pressure 200/124 11/12/23 12:17 Pulse Oximetry 99 11/12/23 12:17 [facility] - Psych Medical Decision Making Patient presents here with paranoia psychosis he is medically cleared he did have hypertension his blood pressure here is improved it could be due to his energy drink consumption and his anxiety it is in the 150s currently EKG here is normal he has no chest pain he is stable for admission to the psych hahn spoke to Dr. Coyne. Medical Records I reviewed the patient's medical records. Lab Data I reviewed the patient's lab results. 11/12/23 12:24 11/12/23 12:24 Laboratory Results WBC 10.70 10^3/uL (3.29-11.43) 11/12/23 12:24 RBC 5.57 10^6/uL (3.85-5.65) 11/12/23 12:24 Hgb 16.40 g/dL (11.27-16.99) 11/12/23 12:24 Hct 49.4 % (37-53) 11/12/23 12:24 MCV 88.7 fl (82-101) 11/12/23 12:24 MCH 29.4 pg (27-33) 11/12/23 12:24 MCHC 33.2 g/dL (30-55) 11/12/23 12:24 RDW 12.3 % (12.1-15.1) 11/12/23 12:24 Plt Count 266 10^3/cmm (157-399) 11/12/23 12:24 MPV 9.2 fL (7.4-10.4) 11/12/23 12:24 Neut % (Auto) 65.4 % 11/12/23 12:24 Lymph % (Auto) 24.1 % 11/12/23 12:24 [place] % (Auto) 6.8 % 11/12/23 12:24 Eos % (Auto) 2.1 % 11/12/23 12:24 Baso % (Auto) 0.8 % 11/12/23 12:24 Neut # (Auto) 6.98 10^3/uL (1.8-7.7) 11/12/23 12:24 Lymph # (Auto) 2.6 10^3/uL (0.8-4.8) 11/12/23 12:24 [place] # (Auto) 0.7 10^3/uL (0.2-0.9) 11/12/23 12:24 Eos # (Auto) 0.2 10^3/uL (0.0-0.8) 11/12/23 12:24 Baso # (Auto) 0.1 10^3/uL (0.0-0.1) 11/12/23 12:24 Nucleated RBC % (auto) 0 % 11/12/23 12:24 Nucleated RBCs # 0.0 /100WBC 11/12/23 12:24 Sodium 137 mmol/L (136-145) 11/12/23 12:24 Potassium 3.8 mmol/L (3.5-5.1) 11/12/23 12:24 Chloride 100 mmol/L (98-107) 11/12/23 12:24 Carbon Dioxide 23 mmol/L (22-29) 11/12/23 12:24 Anion Gap 17.8 (5-19) 11/12/23 12:24 BUN 12 mg/dL (6-20) 11/12/23 12:24 Creatinine 0.8 mg/dL (0.7-1.2) 11/12/23 12:24 GFR Calculation 114.3 mL/min (90-130) 11/12/23 12:24 Glucose 103 mg/dL (65-115) 11/12/23 12:24 Calculated Osmolality 284 mOsm/kg (285-295) L 11/12/23 12:24 Calcium 10.0 mg/dL (8.5-10.5) 11/12/23 12:24 Total Bilirubin 0.4 mg/dL (0.15-1.2) 11/12/23 12:24 AST 24 U/L (0-40) 11/12/23 12:24 ALT 52 U/L (0-41) H 11/12/23 12:24 Alkaline Phosphatase 69 U/L (40-130) 11/12/23 12:24 Total Protein 7.2 g/dL (6.6-8.7) 11/12/23 12:24 Albumin 4.5 g/dL (3.5-5.2) 11/12/23 12:24 Globulin 2.7 g/dL (1.3-4.6) 11/12/23 12:24 Salicylates < 0.3 mg/dL (3-10) L 11/12/23 12:24 Acetaminophen < 5.0 ug/mL (10-30) L 11/12/23 12:24 Ethyl Alcohol < 10 mg/dL (0-10) 11/12/23 12:24 No radiology studies performed this visit EKG Data EKG 1: I personally reviewed and interpreted this EKG as follows: EKG interpretation date: 11/12/23 EKG interpretation time: 13:15 Interpretation: nsr hr [address] or t wave abnormalities qrs 110 qtc 377 Discharge Plan Discharge Patient Disposition: Admitted As Inpatient Clinical Impression: Acute psychosis, Acute paranoia Condition: Stable Coding Level of Care Code ED Track Service Person for Chyna Genao
[2023-11-12] MEDS: metoprolol tartrate 25 mg Tablet PO (12:29)
[2023-11-12] MEDS: LORazepam 1 mg Tablet PO (12:29)
--- NOTE | 2023-11-12 12:34 | PC.PHAR ---
pt states he stop taking his lisinopril 10mg daily and aripiprazole 10mg daily both last filled 06/05/23 30d/s pt states not taken for months pt states he didnt think the medications were working-pt states only takes aleve prn and no other medications
[2023-11-12 12:37] LABS: Basophils # 0.1 10^3/uL (0.0-0.1); Basophils % 0.8 %; Eosinophils # 0.2 10^3/uL (0.0-0.8); Eosinophils % 2.1 %; Hematocrit 49.4 % (37-53); Lymphocytes # 2.6 10^3/uL (0.8-4.8); Lymphocytes % 24.1 %; Mean Corpuscular HGB Conc 33.2 g/dL (30-55); Mean Corpuscular Hemoglobin 29.4 pg (27-33); Mean Corpuscular Volume 88.7 fl (82-101); Mean Platelet Volume 9.2 fL (7.4-10.4); Monocytes # 0.7 10^3/uL (0.2-0.9); Monocytes % 6.8 %; Neutrophils # 6.98 10^3/uL (1.8-7.7); Neutrophils % 65.4 %; Nucleated Red Blood Cells % 0 %; Platelet Count 266 10^3/cmm (157-399); Red Blood Count 5.57 10^6/uL (3.85-5.65); Red Cell Distribution Width 12.3 % (12.1-15.1)
--- NOTE | 2023-11-12 12:54 | PC.NURSE ---
96 hour hold read and reviewed with patient. Patient verbalized understandings. Copy of rights left at the bedside.
[2023-11-12 13:10] LABS: Alanine Aminotransferase 52 U/L (0-41); Albumin Level 4.5 g/dL (3.5-5.2); Alkaline Phosphatase 69 U/L (40-130); Aspartate Amino Transferase 24 U/L (0-40); Blood Urea Nitrogen 12 mg/dL (6-20); Carbon Dioxide 23 mmol/L (22-29); Chloride 100 mmol/L (98-107); Globulin 2.7 g/dL (1.3-4.6); Glomerular Filtration Rate 114.3 mL/min (90-130); Glucose 103 mg/dL (65-115); Osmolality Calculated 284 mOsm/kg (285-295); Sodium 137 mmol/L (136-145); Total Bilirubin 0.4 mg/dL (0.15-1.2); Total Protein 7.2 g/dL (6.6-8.7)
[2023-11-12 13:13] LABS: Acetaminophen < 5.0 ug/mL (10-30); Alcohol Level < 10 mg/dL (0-10); Salicylate < 0.3 mg/dL (3-10)
[2023-11-12 13:14] LABS: Anion Gap 17.8 (5-19); Potassium 3.8 mmol/L (3.5-5.1)
--- NOTE | 2023-11-12 13:15 | ECG_ITS ---
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 Measurements Intervals [place] Rate: 89 P: 55 OR: 173 QRS: 32 QRSD: 110 T: 26 QT: 330 QTc: 403 Interpretive Statements SINUS RHYTHM No previous ECG available for comparison Electronically Signed On 11-12-2023 18:29:36 TRAVEL ACCOMMODATION INSPECTOR by Steve Flannery M.D. [id number]
[2023-11-12 14:00] LABS: Amphetamines Screen Urine Negative (Negative); Barbiturates Screen Urine Negative (Negative); Cocaine Screen Urine Negative (Negative); Opiate Screen Urine Negative (Negative); PCP Screen Urine Negative (Negative); THC Screen Urine Positive (Negative)
[2023-11-12] MEDS: nicotine 2 mg Gum BUCCAL ×2 (16:27→18:47)
[2023-11-12 19:23] LABS: Benzodiazepines Screen Urine Positive (Negative)
[2023-11-13 06:00] VITALS: BP 125/67; PULSE 100; RESP 17; TEMP 36.9; O2SAT 96
--- NOTE | 2023-11-13 09:28 | PC.NURSE ---
Patient reports some suicidal thoughts with no plan to act on them, stating that that would just make it worse . When asked about what would be made worse, patient stated the people he plays video games with and himself. Patient went on to endorse anxiety and depression related to not knowing if the video gamers are safe or if they are being tortured.
[2023-11-13] MEDS: nicotine 2 mg Gum BUCCAL ×2 (09:44→17:47)
--- NOTE | 2023-11-13 12:56 | P.NPUHP_ITS ---
Providers/Chief Complaint 2 Admitting Physician: Lalo Coyne MD Primary Care Provider: Denia Johnson NP Chief Complaint: MHE HPI NPU History of Present Illness Gustavo Livingston is a 28 year old male who presented to the emergency department with the following report: Chief Complaint: Psychiatric Symptoms Stated Complaint: MHE Time Seen by Provider: 11/12/23 12:13 Source: patient Mode of arrival: ambulatory Limitations: no limitations History of Present Illness: 28-year-old male who states that he has been extremely paranoid he thinks that the government is out to get him he states that over the last 8 days he also believes that online games dinners have been tortured that he has been playing against. States he supposed to be on Abilify but has not been taking his Abilify appears quite anxious here as well denies SI or HI Associated symptoms: Reports delusions; Deny depression. He was admitted to the neuropsychiatric unit for definitive treatment of those issues. He was on the unit in October of last year and an excerpt of his discharge summary is included below for context and the fact that there have been few substantive changes. CHIEF COMPLAINT Intrusive thoughts about outcomes of video games having profound effects, delusional thought process, anxiety, depression, suicidal thoughts. HISTORY OF THE PRESENT COMPLAINT The patient reported having stopped taking Abilify, a psychiatric medication, about 10 months ago. He had been prescribed this medication during his previous visit to the hospital. He mentioned that he did not feel the medication was helping him and had difficulty maintaining consistency in taking it. The patient was brought to the hospital due to intrusive thoughts he was experiencing. He believed that gamers online might be getting tortured because of him winning against them. He also expressed fear that he might have to take their place and endure the torture. These thoughts have been causing him significant distress and anxiety. He reported a history of using marijuana quite frequently, which he acknowledged exacerbates his delusional thinking. He also mentioned a history of cocaine use, but not since 2018. He denied any recent use of methamphetamine, opioids, mushrooms, or LSD. He has not been in any drug and alcohol treatment or rehab. The patient reported feeling depressed, with the onset of severe depressive thoughts around the of the current month. He expressed feelings of hopelessness and worthlessness, and admitted to having suicidal thoughts. He also reported a decrease in his enjoyment of activities, including stopping playing video games, which was significant for him. He has been experiencing difficulty sleeping and has been spending most of his time lying in bed. He also reported changes in his diet due to his depression, and expressed a lack of concern about whether he lived or . He expressed fear about the possibility of dying and ending up in hell. He denied any self-injurious behavior, stating that he does not like pain. The patient reported experiencing anxiety for the past year, specifically surrounding his delusional thoughts about people being tortured and him being tortured. He also reported having what he described as recovered memories of being in hell as a child, but he was unsure of the reality of these memories. He reported a history of being on Prozac, which he found difficult to stop taking. He expressed openness to trying new medications or returning to previous ones to help manage his symptoms. The patient reported a history of high blood pressure and had undergone knee surgery in the past. He also mentioned having a cyst below his right earlobe. He reported that his weight issues began as he aged and became more sedentary. The patient described his mood as very anxious and afraid. He expressed fear that talking about his experiences would make his situation worse, but also felt that he needed to talk about it to prevent bad things from happening to others. He reported having thoughts of hurting or killing others out of anger, but these thoughts seemed to be linked to his delusional beliefs rather than directed at specific individuals. He also reported current feelings of paranoia. MENTAL HEALTH HISTORY Previously on Abilify, stopped taking it, felt it wasn't helping. Previously on Prozac, experienced withdrawal symptoms. Hospitalized for psychiatric reasons once before. Attempted outpatient therapy but didn't continue. SOCIAL HISTORY Smokes about a pack a day, consumes alcohol, uses cannabis quite a bit which exacerbates delusional thinking. No drug use since 2018. No history of rehab or drug and alcohol treatment. Works as a [employer]. Per his 11/09/2022 [facility] inpatient psychiatric discharge summary: Discharge Diagnosis (1) Psychotic disorder with delusions: Status: Acute (2) Depressive disorder: Status: Acute Reason for Visit Reason for Visit: 96 hour hold/voluntary Brief History: History of Present Illness Gustavo Livingston is a 27 year old male who reports no previous history of inpatient psychiatric treatment who reports that he was brought to the emergency department by his mother with suicidal ideation and increased paranoia. Patient reports that he is been having a bad feeling like something bad was going to happen and states that he has had this uncomfortable feeling for several years. He reports that on October 27, 2022 he had a major discovery that he describes as being life-changing. He states that he feels that he has 2 different groups raging war and has had with 1 group stating that he needs to keep the information secret while another group is telling him to divulge the information. He states that he currently feels that he cannot divulge all of the information out of fear that the government will come after him. He has reported that he feels strongly like someone is trying to frame him. He reports that others here have the ability somehow to read his mind and can somehow influence him. He had reported that prior to October 27, he had simply felt that something was wrong but the information and the thoughts and believes regarding the 2 warning parties in his mind revealed themselves on that day. He had reported that this information has been extremely stressful to manage and that he had been thinking about suicide but minimized any plan. He did state that he has been struggling with anhedonia, amotivation, depressed mood and increased feelings of hopelessness for the past week. Patient reports having increased problems with concentration and states that he is distracted easily. He reports that he is not this nearly hearing 2 voices but did report that he has been having some intrusive thoughts and states that he now understands their intention. The patient denied any visual hallucinations. He reported that he had been sleeping excessively and had been feeling like sleeping all day. He had reported occasional alcohol use and occasional marijuana use. He had denied any other drug use recently. He denied any history of willian. He has reported having increased anxiety and worry regarding these thoughts. He had reported that he had received some recent information regarding a father that he has no contact with that suggested that his father had had some undue influence on him for several years and reported that he was uncertain about revealing this information to the inspector automatic typewriter of this note out of concern that he may be framed or incarcerated. Past psychiatric history: Patient has reported no previous inpatient hospitalization. He had reported in the past having seen a psychiatrist briefly and a therapist 1 other time. He had reported having been tried previously on Prozac for depression but was not specific about how long ago he had been on this medication. Current medications: None Surgeries: Left knee surgery Allergies: Clarithromycin Medical history: None Legal history: None Family psychiatric history: None Drug and alcohol history: See above, history of half pack to 1 pack/day smoker Social history: Patient was born in [facility] and raised by his mother. He reports that he had never known his biological father. He states that he has an older half-sister and states that he had an older brother and older sister who had in a fire when he was in preschool. He denies any history of sexual physical or emotional abuse. 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 He reports that he is never been and has no children. He is currently not dating and describes himself as an atheist. He currently lives with his mother and [place]. Hospital Course He quickly acclimated to the individual, group and milieu therapies provided. He was started on Abilify 5 mg and that was titrated to 15 mg po qdaily. He demonstrated significant improvement. He worked with the treatment team for discharge planning and follow up. During the hospitalization, patient had routine laboratory studies which were within normal limits except for few outliers. Additionally there was a general medical evaluation which was also within normal limits and revealed no new acute processes. Discharge Summary: At the time of discharge, he denied psychosis or lethality. Mood and anxiety were well managed. Patient endorsed a plan to avoid all drugs of abuse and follow-up with the aftercare recommendations of the treatment team. Patient was evaluated and deemed to be absent credible lethality, and had achieved the maximum benefit from an inpatient hospitalization, so was discharged. Meds NPU Home Medications Medication Instructions Recorded Confirmed Last Taken Type naproxen sodium 220 mg tablet 220 - 440 mg PO Q12H PRN Pain 11/12/23 11/12/23 11/10/23 History Allergies Allergy/AdvReac Type Severity Reaction Status Date / Time clarithromycin [From Biaxin] Allergy ALGY-Rash Verified 11/12/23 12:33 PFSH NPU 2 PFSH: Medical History Cannabis use disorder, severe, dependence Alcohol use disorder, mild, abuse Psychiatric care No significant past medical history Surgical History No significant past surgical history Mental Status Exam 2 MSE Comments: This is an obese versus morbidly obese white male in hospital scrubs with limited grooming and eye contact. No abnormal movements except for mild psychomotor retardation. Cooperative with exam in mild to moderate distress. Speech was normal in rate, rhythm, volume with some pauses noted. His mood was described as depressed and anxious. His affect remains somewhat flat His thought process was linear. His thought content showed paranoia and self- referential ideas noted. Patient endorsed suicidal and had a significant pause related to homicidal ideation, there were no delusions reported but significant paranoia and persecutory thinking noted, he denied auditory or visual hallucinations but did report people inserting themselves into his thoughts. His attention and concentration appeared appropriate and his recent remote memory appeared fair but neither were tested formally. Insight, judgment and impulse control are limited versus impaired. Vitals/I&O/Wt Last Vital Signs Temp 98.5 F 11/13/23 06:00 Pulse 100 11/13/23 06:00 Resp 17 11/13/23 06:00 BP 125/67 11/13/23 06:00 Pulse Ox 96 11/13/23 06:00 O2 Del Method Room Air 11/13/23 06:00 Weight last 48 hrs Weight 113.398 kg Data NPU 11/12/23 12:24 11/12/23 12:24 A&P Assessment and plan (1) Acute paranoia: (2) Acute psychosis: (3) Psychotic disorder with delusions: (4) Alcohol use disorder, mild, abuse: (5) Cannabis use disorder, severe, dependence: Plan Patient is a 28year-old white male who presents with delusional thoughts, anxiety, and depression. Has a history of psychiatric medication use but stopped due to perceived lack of effectiveness. Currently smokes and uses cannabis, which exacerbates his symptoms. Expresses suicidal thoughts but no self-harming behavior. Reporting significant challenges with intrusive thoughts that he is somehow putting others at risk or may himself be at risk in a very referential way. He is open to a trial of medication. 1. 15-minute checks for safety on the unit. 2. Encourage sober living treatment on the unit at the highest level of care to which the patient is willing to commit. 3. Engage patient in individual group and milieu therapy. 4. Start Invega 6 mg p.o. daily. Involuntary Hold Information 2 96 Hour Hold: 96 Hour Involuntary Admission: Yes 96 Hour Hold Ending Date: 11/18/23 96 Hour Hold Ending Time: 12:39 Attestations NPU 2 Medical Necessity Statement*: Inpatient hospitalization is medically necessary and the clinically appropriate intervention at this time. We will monitor/initiate medications and make changes as indicated. He will be in the hospital for over 2 midnights. Likely length of stay 4 to 6 days. Coding Level of Care Code Acute Code for [facility] Fwd Diagnoses Acute paranoia F22 Acute psychosis F23 Psychotic disorder with delusions F29 Alcohol use disorder, mild, abuse F10.10 Cannabis use disorder, severe, dependence F12.20
[2023-11-13 14:00] VITALS: BP 132/77; PULSE 83; RESP 16; TEMP 37; O2SAT 95
[2023-11-13] MEDS: trazodone 50 mg Tablet PO (20:50)
[2023-11-13] MEDS: hyDROXYzine 25 mg Capsule 50 MG PO (20:50)
--- NOTE | 2023-11-13 21:23 | PC.NURSE ---
IN BED RESTING STATES HE WANTS TO COMPLETE ASSESSMENT IN HALLWAY AWAY FROM ROOM MATE. PT STATES HE DOES HAVE SUICIDAL THOUGHTS BUT HAS NO PLAN DUE TO I'M TO SCARED AND FEARFUL TO ACTUALLY DO ANYTHING LIKE THAT. CONTRACTED FOR SAFETY, PT STATES HE WILL COME SPEAK TO STAFF IF FEELINGS BECOME MORE INTRUSIVE. DENIES HI AND AVH AT THIS TIME. RATES ANXIETY 04/22 AND DEPRESSION 02/20. RN ADMINISTERED VISTARIL 50 MG FOR INCREASED ANXIETY AND TRAZODONE 50 MG FOR INSOMNIA. PT IS NOTED TO HAVE A FLAT AFFECT AND DEPRESSED MOOD. ALL QUESTIONS ANSWERED AND SUPPORT WAS VOICED. DENIES PAIN.
[2023-11-13 22:00] VITALS: BP 125/74; PULSE 100; RESP 17; TEMP 36.9; O2SAT 95
[2023-11-14 06:00] VITALS: BP 106/76; PULSE 96; RESP 16; TEMP 36.4; O2SAT 96
--- NOTE | 2023-11-14 06:30 | PC.NURSE ---
PT WAS ADMINISTERED TRAZODONE 50 MG FOR REPORTS OF INSOMNIA AND VISTARIL 50 MG FOR REPORTS OF INCREASED ANXIETY EARLIER IN THE SHIFT. MEDICATIONS DEEMED EFFECTIVE, PT HAS SLEPT APPROXIMATELY 9 HOURS LAST NIGHT WITH NO ISSUES.
--- NOTE | 2023-11-14 08:40 | P.NPUPN_ITS ---
Subjective NPU 2 Subjective: Patient presented today reporting that he is still feeling like he was feeling yesterday. He reports that the medication was 5 and seemed to be helpful a little bit and he denied any side effects or problems with it. He still reports having fear and anxiety surrounding these thoughts that he is having. Mental Status Exam 2 MSE Comments: This is an obese versus morbidly obese white male in hospital scrubs with limited grooming and eye contact. No abnormal movements except for mild psychomotor retardation. Cooperative with exam in mild to moderate distress. Speech was normal in rate, rhythm, volume with some pauses noted. His mood was described as depressed and anxious. His affect remains somewhat flat His thought process was linear. His thought content showed paranoia and self- referential ideas noted. Patient endorsed suicidal and had a significant pause related to homicidal ideation, there were no delusions reported but significant paranoia and persecutory thinking noted, he denied auditory or visual hallucinations but did report people inserting themselves into his thoughts. His attention and concentration appeared appropriate and his recent remote memory appeared fair but neither were tested formally. Insight, judgment and impulse control are limited versus impaired. Vitals/I&O/Wt Last Vital Signs Temp 97.6 F 11/14/23 06:00 Pulse 96 11/14/23 06:00 Resp 16 11/14/23 06:00 BP 106/76 11/14/23 06:00 Pulse Ox 96 11/14/23 06:00 O2 Del Method Room Air 11/14/23 06:00 Data NPU 11/12/23 12:24 11/12/23 12:24 A&P Assessment and plan (1) Acute paranoia: (2) Acute psychosis: (3) Psychotic disorder with delusions: (4) Alcohol use disorder, mild, abuse: (5) Cannabis use disorder, severe, dependence: Plan Patient is a 28year-old white male who presents with delusional thoughts, anxiety, and depression. Has a history of psychiatric medication use but stopped due to perceived lack of effectiveness. Currently smokes and uses cannabis, which exacerbates his symptoms. Expresses suicidal thoughts but no self-harming behavior. Reporting significant challenges with intrusive thoughts that he is somehow putting others at risk or may himself be at risk in a very referential way. He is open to a trial of medication. 1. 15-minute checks for safety on the unit. 2. Encourage sober living treatment on the unit at the highest level of care to which the patient is willing to commit. 3. Engage patient in individual group and milieu therapy. 4. Started Invega 6 mg p.o. daily. Involuntary Hold Information 2 96 Hour Hold: 96 Hour Involuntary Admission: Yes 96 Hour Hold Ending Date: 11/18/23 96 Hour Hold Ending Time: 12:39 Attestations NPU 2 Medical Necessity Statement*: Inpatient hospitalization is medically necessary and the clinically appropriate intervention at this time. We will monitor/initiate medications and make changes as indicated. Likely length of stay 4 to 6 days. Coding Level of Care Code Acute Code for [facility] Fwd Diagnoses Acute paranoia F22 Acute psychosis F23 Psychotic disorder with delusions F29 Alcohol use disorder, mild, abuse F10.10 Cannabis use disorder, severe, dependence F12.20
[2023-11-14] MEDS: OLANZapine 5 mg ODT PO (09:15)
[2023-11-14] MEDS: paliperidone ER 6 mg Tablet PO (13:14)
[2023-11-14 13:45] VITALS: BP 150/74; PULSE 96; RESP 17; TEMP 36.8; O2SAT 96
[2023-11-14] MEDS: nicotine 2 mg Gum BUCCAL (18:27)
[2023-11-14 20:50] VITALS: BP 114/77; PULSE 104; RESP 18; TEMP 36.9; O2SAT 94
[2023-11-15 06:00] VITALS: BP 120/77; PULSE 92; RESP 18; TEMP 36.8; O2SAT 95
[2023-11-15] MEDS: paliperidone ER 6 mg Tablet PO (08:35)
[2023-11-15] MEDS: nicotine 2 mg Gum BUCCAL ×2 (12:27→18:23)
[2023-11-15 14:00] VITALS: BP 114/72; PULSE 94; RESP 20; TEMP 36.8; O2SAT 95
--- NOTE | 2023-11-15 14:59 | P.NPUPN_ITS ---
Subjective NPU 2 Subjective: Patient presented today reporting that he is still feeling like he is scared about his situation. He reports that the medication was fine and not making things worse. He denied any side effects or problems with it. He endorses worrying that things will not get better and that his lip is stuck in this place. He denied any side effects to the medication. We discussed the risks, benefits and alternatives of increasing the Invega to 9 mg and he understood and agreed to proceed as is documented in this note. Mental Status Exam 2 MSE Comments: This is an obese versus morbidly obese white male in hospital scrubs with limited grooming and eye contact. No abnormal movements except for mild psychomotor retardation. Cooperative with exam in mild to moderate distress. Speech was normal in rate, rhythm, volume with some pauses noted. His mood was described as depressed and anxious. His affect remains somewhat flat His thought process was linear. His thought content showed paranoia and self- referential ideas noted. Patient endorsed suicidal and had a significant pause related to homicidal ideation, there were no delusions reported but significant paranoia and persecutory thinking noted, he denied auditory or visual hallucinations but did report people inserting themselves into his thoughts. His attention and concentration appeared appropriate and his recent remote memory appeared fair but neither were tested formally. Insight, judgment and impulse control are limited versus impaired. Vitals/I&O/Wt Last Vital Signs Temp 98.3 F 11/15/23 06:00 Pulse 92 11/15/23 06:00 Resp 18 11/15/23 06:00 BP 120/77 11/15/23 06:00 Pulse Ox 95 11/15/23 06:00 O2 Del Method Room Air 11/14/23 06:00 Data NPU 11/12/23 12:24 11/12/23 12:24 A&P Assessment and plan (1) Acute paranoia: (2) Acute psychosis: (3) Psychotic disorder with delusions: (4) Alcohol use disorder, mild, abuse: (5) Cannabis use disorder, severe, dependence: Plan Patient is a 28year-old white male who presents with delusional thoughts, anxiety, and depression. Has a history of psychiatric medication use but stopped due to perceived lack of effectiveness. Currently smokes and uses cannabis, which exacerbates his symptoms. Expresses suicidal thoughts but no self-harming behavior. Reporting significant challenges with intrusive thoughts that he is somehow putting others at risk or may himself be at risk in a very referential way. He is open to a trial of medication. 1. 15-minute checks for safety on the unit. 2. Encourage sober living treatment on the unit at the highest level of care to which the patient is willing to commit. 3. Engage patient in individual group and milieu therapy. 4. Started Invega 6 mg p.o. daily. Increase to 9 mg tomorrow. Involuntary Hold Information 2 96 Hour Hold: 96 Hour Involuntary Admission: Yes 96 Hour Hold Ending Date: 11/18/23 96 Hour Hold Ending Time: 12:39 Attestations NPU 2 Medical Necessity Statement*: Inpatient hospitalization is medically necessary and the clinically appropriate intervention at this time. We will monitor/initiate medications and make changes as indicated. Likely length of stay 4 to 6 days. Coding Level of Care Code Acute Code for [facility] Fwd Diagnoses Acute paranoia F22 Acute psychosis F23 Psychotic disorder with delusions F29 Alcohol use disorder, mild, abuse F10.10 Cannabis use disorder, severe, dependence F12.20
[2023-11-15] MEDS: trazodone 50 mg Tablet PO (20:13)
[2023-11-15] MEDS: hyDROXYzine 25 mg Capsule 50 MG PO (20:13)
[2023-11-15 20:57] VITALS: BP 130/75; PULSE 106; RESP 18; TEMP 36.6; O2SAT 93
[2023-11-16 06:00] VITALS: BP 112/70; PULSE 93; RESP 18; TEMP 36.9; O2SAT 94
[2023-11-16] MEDS: nicotine 4 mg lozenge MUCOUS MEM (09:05)
[2023-11-16] MEDS: paliperidone ER 9 mg Tablet PO (09:06)
--- NOTE | 2023-11-16 11:16 | P.NPUPN_ITS ---
Subjective NPU 2 Subjective: Patient presented today reporting that he is maybe doing a little better. He reports that he is still in his head and having intrusive thoughts but that he is able to be less isolative in his up walking around a little more such as staying in bed. He still has concerning thoughts about whether something bad is going to happen to him but he reports maybe the increase in the medication is helping. He denied any side effects of the medication. Mental Status Exam 2 MSE Comments: This is an obese versus morbidly obese white male in hospital scrubs with limited grooming and eye contact. No abnormal movements except for mild psychomotor retardation. Cooperative with exam in mild to moderate distress. Speech was normal in rate, rhythm, volume with some pauses noted. His mood was described as depressed and anxious. His affect remains somewhat flat His thought process was linear. His thought content showed paranoia and self- referential ideas noted. Patient endorsed suicidal and had a significant pause related to homicidal ideation, there were no delusions reported but significant paranoia and persecutory thinking noted, he denied auditory or visual hallucinations but did report people inserting themselves into his thoughts. His attention and concentration appeared appropriate and his recent remote memory appeared fair but neither were tested formally. Insight, judgment and impulse control are limited versus impaired. Vitals/I&O/Wt Last Vital Signs Temp 98.4 F 11/16/23 06:00 Pulse 93 11/16/23 06:00 Resp 18 11/16/23 06:00 BP 112/70 11/16/23 06:00 Pulse Ox 94 11/16/23 06:00 O2 Del Method Room Air 11/16/23 06:00 Data NPU 11/12/23 12:24 11/12/23 12:24 A&P Assessment and plan (1) Acute paranoia: (2) Acute psychosis: (3) Psychotic disorder with delusions: (4) Alcohol use disorder, mild, abuse: (5) Cannabis use disorder, severe, dependence: Plan Patient is a 28year-old white male who presents with delusional thoughts, anxiety, and depression. Has a history of psychiatric medication use but stopped due to perceived lack of effectiveness. Currently smokes and uses cannabis, which exacerbates his symptoms. Expresses suicidal thoughts but no self-harming behavior. Reporting significant challenges with intrusive thoughts that he is somehow putting others at risk or may himself be at risk in a very referential way. He is open to a trial of medication. 1. 15-minute checks for safety on the unit. 2. Encourage sober living treatment on the unit at the highest level of care to which the patient is willing to commit. 3. Engage patient in individual group and milieu therapy. 4. Started Invega 6 mg p.o. daily. Increased to 9 mg. Involuntary Hold Information 2 96 Hour Hold: 96 Hour Involuntary Admission: Yes 96 Hour Hold Ending Date: 11/18/23 96 Hour Hold Ending Time: 12:39 Attestations NPU 2 Medical Necessity Statement*: Inpatient hospitalization is medically necessary and the clinically appropriate intervention at this time. We will monitor/initiate medications and make changes as indicated. Likely length of stay 4 to 6 days. Coding Level of Care Code Acute Code for [facility] Diagnoses Acute paranoia F22 Acute psychosis F23 Psychotic disorder with delusions F29 Alcohol use disorder, mild, abuse F10.10 Cannabis use disorder, severe, dependence F12.20
--- NOTE | 2023-11-16 11:26 | PC.NURSE ---
PT CURRENTLY DENIES HI/AH/VH. WHEN ASKED ABOUT SI PT STATES IM TO SCARED TO KILL MYSELF. PT ENDORSES ANXIETY RATING BOTH A 6/10 ON A 0-10 SCALE WHERE 0 IS NONE AND 10 IS THE WORST. PT CURRENTLY DENIES NEED FOR MEDICATIONS. PT WAS WILLING AND COOPERATIVE WITH ASSESSMENT AND MEDICATIONS. PT CURRENT NEEDS ARE MET AT THIS TIME.
[2023-11-16 14:00] VITALS: BP 126/81; PULSE 105; RESP 20; TEMP 36.9; O2SAT 96
[2023-11-16] MEDS: nicotine 2 mg Gum BUCCAL (14:27)
[2023-11-16 20:26] VITALS: BP 150/86; PULSE 104; RESP 18; TEMP 37; O2SAT 94
[2023-11-16] MEDS: trazodone 50 mg Tablet PO (20:31)
[2023-11-16] MEDS: OLANZapine 5 mg ODT PO (20:31)
--- NOTE | 2023-11-16 21:52 | PC.NURSE ---
SITTING IN BED, PT DENIES PAIN, SI/HI AND AVH AT THIS TIME. RATES ANXIETY AND DEPRESSION 01/21. REQUESTS MEDICATIONS TO HELP HIM SLEEP AND TO REDUCE ANXIETY. PT WAS GIVEN TRAZODONE 50 MG FOR INSOMNIA AND ZYDIS 5 MG FOR INCREASED ANXIETY. PT IS NOTED TO HAVE A FLAT AFFECT AND DEPRESSED MOOD. SUICIDAL THOUGHTS ARE IMPROVING AND NOW PT DENIES ALL SI. ALL QUESTIONS WERE ANSWERED AND SUPPORT WAS VOICED.
--- NOTE | 2023-11-17 05:48 | PC.NURSE ---
PT WAS ADMINISTERED TRAZODONE 50 MG FOR INSOMNIA AND ZYDIS 5 MG ORDERED FOR INCREASED ANXIETY. PT WAS GIVEN MEDICATIONS LAST NIGHT AND MEDICATIONS ARE DEEMED EFFECTIVE AT THIS TIME. PT SLEPT APPROXIMATELY 10 HOURS LAST NIGHT.
[2023-11-17 06:00] VITALS: BP 113/75; PULSE 62; RESP 18; TEMP 36.4; O2SAT 94
[2023-11-17] MEDS: nicotine 4 mg lozenge MUCOUS MEM (08:16)
[2023-11-17] MEDS: paliperidone ER 9 mg Tablet PO (08:16)
--- NOTE | 2023-11-17 10:03 | P.NPUPN_ITS ---
Subjective NPU 2 Subjective: Patient presented today reporting that he is feeling possibly a little better finally. We discussed the medication which he reports he feels is probably helping. We discussed his job and need for him to be back to work before Saturday if he is wanting to avoid it he risk of his job being taken. He denied any side effects of the medication. Mental Status Exam 2 MSE Comments: This is an obese versus morbidly obese white male in hospital scrubs with limited grooming and eye contact. No abnormal movements except for mild psychomotor retardation. Cooperative with exam in mild distress. Speech was normal in rate, rhythm, volume with less pauses noted. His mood was described as depressed and anxious. His affect remains somewhat flat His thought process was linear. His thought content showed paranoia and self-referential ideas noted. Patient endorsed suicidal but denied homicidal ideation, there were no delusions reported but significant paranoia and persecutory thinking noted, he denied auditory or visual hallucinations but did report people inserting themselves into his thoughts. His attention and concentration appeared appropriate and his recent remote memory appeared fair but neither were tested formally. Insight, judgment and impulse control are limited versus impaired. Vitals/I&O/Wt Last Vital Signs Temp 97.5 F L 11/17/23 06:00 Pulse 62 11/17/23 06:00 Resp 18 11/17/23 06:00 BP 113/75 11/17/23 06:00 Pulse Ox 94 11/17/23 06:00 O2 Del Method Room Air 11/17/23 06:00 Weight last 48 hrs Weight 110.903 kg Data NPU 11/12/23 12:24 11/12/23 12:24 A&P Assessment and plan (1) Acute paranoia: (2) Acute psychosis: (3) Psychotic disorder with delusions: (4) Alcohol use disorder, mild, abuse: (5) Cannabis use disorder, severe, dependence: Plan Patient is a 28year-old white male who presents with delusional thoughts, anxiety, and depression. Has a history of psychiatric medication use but stopped due to perceived lack of effectiveness. Currently smokes and uses cannabis, which exacerbates his symptoms. Expresses suicidal thoughts but no self-harming behavior. Reporting significant challenges with intrusive thoughts that he is somehow putting others at risk or may himself be at risk in a very referential way. He is open to a trial of medication. 1. 15-minute checks for safety on the unit. 2. Encourage sober living treatment on the unit at the highest level of care to which the patient is willing to commit. 3. Engage patient in individual group and milieu therapy. 4. Started Invega 6 mg p.o. daily. Increased to 9 mg. Involuntary Hold Information 2 96 Hour Hold: 96 Hour Involuntary Admission: Yes 96 Hour Hold Ending Date: 11/18/23 96 Hour Hold Ending Time: 12:39 Attestations NPU 2 Medical Necessity Statement*: Inpatient hospitalization is medically necessary and the clinically appropriate intervention at this time. We will monitor/initiate medications and make changes as indicated. Likely length of stay 3-5 days. Coding Level of Care Code Acute Code for [facility] Diagnoses Acute paranoia F22 Acute psychosis F23 Psychotic disorder with delusions F29 Alcohol use disorder, mild, abuse F10.10 Cannabis use disorder, severe, dependence F12.20
[2023-11-17] MEDS: nicotine 2 mg Gum BUCCAL ×4 (10:15→17:12)
[2023-11-17 14:00] VITALS: BP 131/85; PULSE 82; RESP 18; TEMP 37; O2SAT 96
[2023-11-17 20:09] VITALS: BP 138/95; PULSE 105; RESP 18; TEMP 36.6; O2SAT 96
[2023-11-17] MEDS: hyDROXYzine 25 mg Capsule 50 MG PO (20:26)
[2023-11-17] MEDS: trazodone 50 mg Tablet PO ×2 (20:26→21:34)
--- NOTE | 2023-11-17 21:41 | PC.NURSE ---
IN DAY ROOM WATHCING TV. DENIES PAIN, DENIES SI/HI AND AVH AT THIS TIME. PT IS OBSERVED TO HAVE A FLAT AFFECT AND DEPRESSED MOOD. RATES ANXIETY 5/10 AND DEPRESSION 4/10. PT REPORTS HE IS FEELING BETTER BUT IS STILL NOT FEELING HIMSELF. RN ADMINISTERED TRAZODONE 50 MG ORDERED FOR INSOMNIA AND REPEATED THE DOSE AFTER HOUR AND PT STATED ITS NOT WORKING LIKE IT USE TO. : PT WAS ALSO GIVEN VISTARIL 50 MG ORDERED FOR REPORTED INCREASED ANXIETY. ALL QUESTIONS WERE ANSWERED AND SUPPORT WAS VOICED.
--- NOTE | 2023-11-18 04:57 | PC.NURSE ---
PT WAS GIVEN TRAZODONE 50 MG TIMES 2 DOSES FOR INSOMNIA AND VISTARIL 50 MG FOR ANXIETY. PT HAS SLEPT APPROXIMATELY 8 HOURS LAST SHIFT. DID GET UP ONCE AND PACED THE HALLS AND THEN BACK TO SLEEP. MEDICATIONS WERE SOMEWHAT EFFECTIVE. PT DOES REPORT DECREASED ANXIETY AND DECLINES FURTHER PHARMACEUTICAL INTERVENTION.
[2023-11-18 06:00] VITALS: BP 121/81; PULSE 109; RESP 16; TEMP 36.8; O2SAT 94
[2023-11-18] MEDS: paliperidone ER 9 mg Tablet PO (08:07)
[2023-11-18] MEDS: nicotine 2 mg Gum BUCCAL ×3 (08:07→14:58)
--- NOTE | 2023-11-18 08:22 | P.NPUPN_ITS ---
Subjective NPU 2 Subjective: Patient presented today reporting that he was doing okay. He reports he had a strange dream last night but that he is feeling continued improvement overall. He reports feeling optimistic about how he might be able to manage things going home but feels he may avoid videogames for a little while. He denied any side effects of the medication reported he is feeling ready and optimistic about discharge tomorrow. Mental Status Exam 2 MSE Comments: This is an obese versus morbidly obese white male in hospital scrubs with limited grooming and eye contact. No abnormal movements except for mild psychomotor retardation. Cooperative with exam in mild distress. Speech was normal in rate, rhythm, volume with less pauses noted. His mood was described as feeling a bit better. His affect remains somewhat flat His thought process was linear. His thought content showed less paranoia and self-referential ideas noted. Patient denies suicidal or homicidal ideation, there were no delusions reported and paranoia persecutory thinking decreased, he denied auditory or visual hallucinations. His attention and concentration appeared appropriate and his recent remote memory appeared fair but neither were tested formally. Insight, judgment and impulse control are limited Vitals/I&O/Wt Last Vital Signs Temp 98.3 F 11/18/23 06:00 Pulse 109 H 11/18/23 06:00 Resp 16 11/18/23 06:00 BP 121/81 11/18/23 06:00 Pulse Ox 94 11/18/23 06:00 O2 Del Method Room Air 11/18/23 06:00 Weight last 48 hrs Weight 110.903 kg Data NPU 11/12/23 12:24 11/12/23 12:24 A&P Assessment and plan (1) Acute paranoia: (2) Acute psychosis: (3) Psychotic disorder with delusions: (4) Alcohol use disorder, mild, abuse: (5) Cannabis use disorder, severe, dependence: Plan Patient is a 28year-old white male who presents with delusional thoughts, anxiety, and depression. Has a history of psychiatric medication use but stopped due to perceived lack of effectiveness. Currently smokes and uses cannabis, which exacerbates his symptoms. Expresses suicidal thoughts but no self-harming behavior. Reporting significant challenges with intrusive thoughts that he is somehow putting others at risk or may himself be at risk in a very referential way. He is open to a trial of medication. 1. 15-minute checks for safety on the unit. 2. Encourage sober living treatment on the unit at the highest level of care to which the patient is willing to commit. 3. Engage patient in individual group and milieu therapy. 4. Started Invega 6 mg p.o. daily. Increased to 9 mg. Involuntary Hold Information 2 96 Hour Hold: 96 Hour Involuntary Admission: Yes 96 Hour Hold Ending Date: 11/18/23 96 Hour Hold Ending Time: 12:39 Attestations NPU 2 Medical Necessity Statement*: Inpatient hospitalization is medically necessary and the clinically appropriate intervention at this time. We will monitor/initiate medications and make changes as indicated. Likely length of stay 1-3 days. Coding Level of Care Code Acute Code for [facility] Fw Diagnoses Acute paranoia F22 Acute psychosis F23 Psychotic disorder with delusions F29 Alcohol use disorder, mild, abuse F10.10 Cannabis use disorder, severe, dependence F12.20
[2023-11-18 14:00] VITALS: BP 141/97; PULSE 114; RESP 17; TEMP 36.8; O2SAT 96
[2023-11-18 20:56] VITALS: BP 135/85; PULSE 109; RESP 18; TEMP 36.8; O2SAT 93
[2023-11-18] MEDS: trazodone 50 mg Tablet PO (20:56)
[2023-11-18] MEDS: OLANZapine 5 mg ODT PO (20:56)
--- NOTE | 2023-11-18 21:40 | PC.NURSE ---
SITTING ON BENCH. PT PARTICIPATES WITH ASSESSMENT AND TREATMENT. DENIES PAIN. DENIES SI/HI AND AVH AT THIS TIME. RATES ANXIETY 7/10 AND DEPRESSION 6/10. CONTINUES TO HAVE FLAT AFFECT BUT IS IMPROVING. OBSERVED TO BE MORE INTERACTIVE WITH STAFF AND PEERS. ZYDIS 5 MG GIVEN ORDERED FOR INCREASED ANXIETY AND RESTLESSNESS. TRAZODONE 50 MG GIVEN ORDERED FOR INSOMNIA. PT EDUCATED THAT REPEAT DOSE CAN BE GIVEN IF TRAZODONE INEFFECTIVE IN ONE HOUR. ALL QUESTIONS ANSWERED AND SUPPORT WAS VOICED.
[2023-11-19 06:00] VITALS: RESP 16
--- NOTE | 2023-11-19 06:26 | PC.NURSE ---
pt refused vitals. respiration rate 16.
[2023-11-19] MEDS: paliperidone ER 9 mg Tablet PO (08:12)
[2023-11-19] MEDS: hyDROXYzine 25 mg Capsule 50 MG PO (08:32)
[2023-11-19] MEDS: nicotine 2 mg Gum BUCCAL (09:53)
--- NOTE | 2023-11-19 11:56 | P.NPUDS_ITS ---
Diagnoses at Discharge Discharge Diagnosis (1) Acute paranoia: Status: Acute (2) Acute psychosis: Status: Acute (3) Psychotic disorder with delusions: Status: Acute (4) Alcohol use disorder, mild, abuse: Status: Acute (5) Cannabis use disorder, severe, dependence: Status: Acute Reason for Visit Reason for Visit: MHE Brief History: History of Present Illness Gustavo Livingston is a 28 year old male who presented to the emergency department with the following report: Chief Complaint: Psychiatric Symptoms Stated Complaint: MHE Time Seen by Provider: 11/12/23 12:13 Source: patient Mode of arrival: ambulatory Limitations: no limitations History of Present Illness: 28-year-old male who states that he has been extremely paranoid he thinks that the government is out to get him he states that over the last 8 days he also believes that online games dinners have been tortured that he has been playing against. States he supposed to be on Abilify but has not been taking his Abilify appears quite anxious here as well denies SI or HI Associated symptoms: Reports delusions; Deny depression. He was admitted to the neuropsychiatric unit for definitive treatment of those issues. He was on the unit in October of last year and an excerpt of his discharge summary is included below for context and the fact that there have been few substantive changes. CHIEF COMPLAINT Intrusive thoughts about outcomes of video games having profound effects, delusional thought process, anxiety, depression, suicidal thoughts. HISTORY OF THE PRESENT COMPLAINT The patient reported having stopped taking Abilify, a psychiatric medication, about 10 months ago. He had been prescribed this medication during his previous visit to the hospital. He mentioned that he did not feel the medication was helping him and had difficulty maintaining consistency in taking it. The patient was brought to the hospital due to intrusive thoughts he was experiencing. He believed that gamers online might be getting tortured because of him winning against them. He also expressed fear that he might have to take their place and endure the torture. These thoughts have been causing him significant distress and anxiety. He reported a history of using marijuana quite frequently, which he acknowledged exacerbates his delusional thinking. He also mentioned a history of cocaine use, but not since 2018. He denied any recent use of methamphetamine, opioids, mushrooms, or LSD. He has not been in any drug and alcohol treatment or rehab. The patient reported feeling depressed, with the onset of severe depressive thoughts around the of the current month. He expressed feelings of hopelessness and worthlessness, and admitted to having suicidal thoughts. He also reported a decrease in his enjoyment of activities, including stopping playing video games, which was significant for him. He has been experiencing difficulty sleeping and has been spending most of his time lying in bed. He also reported changes in his diet due to his depression, and expressed a lack of concern about whether he lived or . He expressed fear about the possibility of dying and ending up in hell. He denied any self-injurious behavior, stating that he does not like pain. The patient reported experiencing anxiety for the past year, specifically surrounding his delusional thoughts about people being tortured and him being tortured. He also reported having what he described as recovered memories of being in hell as a child, but he was unsure of the reality of these memories. He reported a history of being on Prozac, which he found difficult to stop taking. He expressed openness to trying new medications or returning to previous ones to help manage his symptoms. The patient reported a history of high blood pressure and had undergone knee surgery in the past. He also mentioned having a cyst below his right earlobe. He reported that his weight issues began as he aged and became more sedentary. The patient described his mood as very anxious and afraid. He expressed fear that talking about his experiences would make his situation worse, but also felt that he needed to talk about it to prevent bad things from happening to others. He reported having thoughts of hurting or killing others out of anger, but these thoughts seemed to be linked to his delusional beliefs rather than directed at specific individuals. He also reported current feelings of paranoia. MENTAL HEALTH HISTORY Previously on Abilify, stopped taking it, felt it wasn't helping. Previously on Prozac, experienced withdrawal symptoms. Hospitalized for psychiatric reasons once before. Attempted outpatient therapy but didn't continue. SOCIAL HISTORY Smokes about a pack a day, consumes alcohol, uses cannabis quite a bit which exacerbates delusional thinking. No drug use since 2018. No history of rehab or drug and alcohol treatment. 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 Per his 11/09/2022 [facility] inpatient psychiatric discharge summary: Discharge Diagnosis (1) Psychotic disorder with delusions: Status: Acute (2) Depressive disorder: Status: Acute Reason for Visit Reason for Visit: 96 hour hold/voluntary Brief History: History of Present Illness Gustavo Livingston is a 27 year old male who reports no previous history of inpatient psychiatric treatment who reports that he was brought to the emergency department by his mother with suicidal ideation and increased paranoia. Patient reports that he is been having a bad feeling like something bad was going to happen and states that he has had this uncomfortable feeling for several years. He reports that on October 27, 2022 he had a major discovery that he describes as being life-changing. He states that he feels that he has 2 different groups raging war and has had with 1 group stating that he needs to keep the information secret while another group is telling him to divulge the information. He states that he currently feels that he cannot divulge all of the information out of fear that the government will come after him. He has reported that he feels strongly like someone is trying to frame him. He reports that others here have the ability somehow to read his mind and can somehow influence him. He had reported that prior to October 27, he had simply felt that something was wrong but the information and the thoughts and believes regarding the 2 warning parties in his mind revealed themselves on that day. He had reported that this information has been extremely stressful to manage and that he had been thinking about suicide but minimized any plan. He did state that he has been struggling with anhedonia, amotivation, depressed mood and increased feelings of hopelessness for the past week. Patient reports having increased problems with concentration and states that he is distracted easily. He reports that he is not this nearly hearing 2 voices but did report that he has been having some intrusive thoughts and states that he now understands their intention. The patient denied any visual hallucinations. He reported that he had been sleeping excessively and had been feeling like sleeping all day. He had reported occasional alcohol use and occasional marijuana use. He had denied any other drug use recently. He denied any history of willian. He has reported having increased anxiety and worry regarding these thoughts. He had reported that he had received some recent information regarding a father that he has no contact with that suggested that his father had had some undue influence on him for several years and reported that he was uncertain about revealing this information to the investment underwriter of this note out of concern that he may be framed or incarcerated. Past psychiatric history: Patient has reported no previous inpatient hospitalization. He had reported in the past having seen a psychiatrist briefly and a therapist 1 other time. He had reported having been tried previously on Prozac for depression but was not specific about how long ago he had been on this medication. Current medications: None Surgeries: Left knee surgery Allergies: Clarithromycin Medical history: None Legal history: None Family psychiatric history: None Drug and alcohol history: See above, history of half pack to 1 pack/day smoker Social history: Patient was born in [facility] and raised by his mother. He reports that he had never known his biological father. He states that he has an older half-sister and states that he had an older brother and older sister who had in a fire when he was in preschool. He denies any history of sexual physical or emotional abuse. 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 He reports that he is never been and has no children. He is currently not dating and describes himself as an atheist. He currently lives with his mother and [place]. Hospital Course He quickly acclimated to the individual, group and milieu therapies provided. He was started on Abilify 5 mg and that was titrated to 15 mg po qdaily. He demonstrated significant improvement. He worked with the treatment team for discharge planning and follow up. During the hospitalization, patient had routine laboratory studies which were within normal limits except for few outliers. Additionally there was a general medical evaluation which was also within normal limits and revealed no new acute processes. Discharge Summary: At the time of discharge, he denied psychosis or lethality. Mood and anxiety were well managed. Patient endorsed a plan to avoid all drugs of abuse and follow-up with the aftercare recommendations of the treatment team. Patient was evaluated and deemed to be absent credible lethality, and had achieved the maximum benefit from an inpatient hospitalization, so was discharged. Hospital Course Hospital Course He slowly acclimated to the individual, group and milieu therapy provided. He presented endorsing feeling significant suicidality and thought disorder off of his medication. He was started on Invega 6 mg p.o. daily which was increased to 9 mg with a good response. He had significant improvement and he worked with the social work team for appropriate aftercare and follow-ups. He was able to contract for safety outside of the hospital prior to discharge. During the hospitalization, patient had routine laboratory studies which were within normal limits except for few outliers.? Additionally there was a general medical evaluation which was also within normal limits and revealed no new acute processes. Discharge Summary: At the time of discharge, he denied lethality and his psychosis was improving.? Mood and anxiety were well managed.? Patient endorsed a plan to avoid all drugs of abuse and follow-up with the aftercare recommendations of the treatment team.? Patient was evaluated and deemed to be absent credible lethality, and had achieved the maximum benefit from an inpatient hospitalization, so was discharged. Involuntary Hold Information 96 Hour Hold: 96 Hour Involuntary Admission: Yes 96 Hour Hold Ending Date: 11/18/23 96 Hour Hold Ending Time: 12:39 Mental Status Exam MSE Comments: This is an obese versus morbidly obese white male in hospital scrubs with limite d grooming and eye contact. No abnormal movements except for mild psychomotor retardation. Cooperative with exam in mild distress. Speech was normal in rate, rhythm, volume with less pauses noted. His mood was described as better. His affect remains somewhat flat His thought process was linear. His thought content showed less paranoia and self-referential ideas noted. Patient denies suicidal or homicidal ideation, there were no delusions reported and paranoia persecutory thinking decreased, he denied auditory or visual hallucinations. His attention and concentration appeared appropriate and his recent remote memory appeared fair but neither were tested formally. Insight, judgment and impulse control are limited Discharge Data Studies Completed and Pending: Laboratory Results WBC 10.70 10^3/uL (3. 29-11.43) 11/12/23 12:24 RBC 5.57 10^6/uL (3.8 5-5.65) 11/12/23 12:24 Hgb 16.40 g/dL (11.27 -16.99) 11/12/23 12:24 Hct 49.4 % (37-53) 11/12/23 12:24 MCV 88.7 fl (82-101) 11/12/23 12:24 MCH 29.4 pg (27-33) 11/12/23 12:24 MCHC 33.2 g/dL (30-55) 11/12/23 12:24 RDW 12.3 % (12.1-15.1 ) 11/12/23 12:24 Plt Count 266 10^3/cmm (157 -399) 11/12/23 12:24 MPV 9.2 fL (7.4-10.4) 11/12/23 12:24 Neut % (Auto) 65.4 % 11/12/23 12:24 Lymph % (Auto) 24.1 % 11/12/23 12:24 [place] % (Auto) 6.8 % 11/12/23 12:24 Eos % (Auto) 2.1 % 11/12/23 12:24 Baso % (Auto) 0.8 % 11/12/23 12:24 Neut # (Auto) 6.98 10^3/uL (1.8 -7.7) 11/12/23 12:24 Lymph # (Auto) 2.6 10^3/uL (0.8- 4.8) 11/12/23 12:24 [place] # (Auto) 0.7 10^3/uL (0.2- 0.9) 11/12/23 12:24 Eos # (Auto) 0.2 10^3/uL (0.0- 0.8) 11/12/23 12:24 Baso # (Auto) 0.1 10^3/uL (0.0- 0.1) 11/12/23 12:24 Nucleated RBC % (a uto) 0 % 11/12/23 12:24 Nucleated RBCs # 0.0 /100WBC 11/12/23 12:24 Sodium 137 mmol/L (136-1 45) 11/12/23 12:24 Potassium 3.8 mmol/L (3.5-5 .1) 11/12/23 12:24 Chloride 100 mmol/L (98-10 7) 11/12/23 12:24 Carbon Dioxide 23 mmol/L (22-29) 11/12/23 12:24 Anion Gap 17.8 (5-19) 11/12/23 12:24 BUN 12 mg/dL (6-20) 11/12/23 12:24 Creatinine 0.8 mg/dL (0.7-1. 2) 11/12/23 12:24 GFR Calculation 114.3 mL/min (90- 130) 01/30/24 12:24 Glucose 103 mg/dL (65-115 ) 11/12/23 12:24 Calculated Osmolal ity 284 mOsm/kg (285- 295) L 11/12/23 12:24 Calcium 10.0 mg/dL (8.5-1 0.5) 11/12/23 12:24 Total Bilirubin 0.4 mg/dL (0.15-1 .2) 11/12/23 12:24 AST 24 U/L (0-40) 11/12/23 12:24 ALT 52 U/L (0-41) H 11/12/23 12:24 Alkaline Phosphata se 69 U/L (40-130) 11/12/23 12:24 Total Protein 7.2 g/dL (6.6-8.7 ) 11/12/23 12:24 Albumin 4.5 g/dL (3.5-5.2 ) 11/12/23 12:24 Globulin 2.7 g/dL (1.3-4.6 ) 11/12/23 12:24 Salicylates < 0.3 mg/dL (3-10 ) L 11/12/23 12:24 Urine Opiates Scre en Negative ng/mL (N egative) 11/12/23 18:00 Acetaminophen < 5.0 ug/mL (10-3 0) L 11/12/23 12:24 Ur Barbiturates Sc reen Negative ng/mL (N egative) 11/12/23 18:00 Ur Phencyclidine S crn Negative ng/mL (N egative) 11/12/23 18:00 Ur Amphetamines Sc reen Negative ng/mL (N egative) 11/12/23 18:00 U Benzodiazepines Scrn Positive ng/mL (N egative) H 11/12/23 18:00 Urine Cocaine Scre en Negative ng/mL (N egative) 11/12/23 18:00 U Marijuana (THC) Screen Positive ng/mL (N egative) H 11/12/23 18:00 Ethyl Alcohol < 10 mg/dL (0-10) 11/12/23 12:24 Vitals: Last Vital Signs Temp 98.3 F 11/18/23 20:56 Pulse 109 H 11/18/23 20:56 Resp 16 11/19/23 06:00 BP 135/85 11/18/23 20:56 Pulse Ox 93 11/18/23 20:56 O2 Del Method Room Air 11/18/23 20:56 Discharge Plan Discharge Patient Disposition: Home Condition: Stable Prescriptions: New trazodone 50 mg Tablet 50 mg PO BEDTIME PRN (Reason: Sleep) 30 Days Qty: 30 1RF hydroxyzine pamoate 25 mg Capsule 50 mg PO Q6H PRN (Reason: Anxiety) 30 Days Qty: 120 1RF paliperidone 9 mg Tablet Extended Release 24hr 9 mg PO DAILY 30 Days Qty: 30 1RF Continued naproxen sodium 220 mg Tablet 220 - 440 mg PO Q12H PRN (Reason: Pain) Discharge Orders: Discharge Order (Routine); Ordered 11/19/23 Ordered By: Lalo Coyne Referrals: Pranav [Other] (Call [facility] for any insurance questions or needs.) [facility] [Outside] - 11/26/23 12:30 pm (Initial assessment for services with Milad) Denia Johnson NP [Primary Care Provider] - 11/26/23 2:00 pm Discharge Diet: Regular Discharge Activity: Resume usual activity Patient Instructions: Paliperidone (By mouth) (Invega), Abuse of Alcohol (DC), Cannabis Use Disorder (DC), Psychotic Disorder (DC), Opioid Safety, Paranoid Personality Disorder Discharge Attestations NPU Time Spent in Discharge Care*: less than 30 min Specific Discharge Activities: Specific discharge activities: educating patient, discussing with adult protective caseworker/social workers/dc planners, documenting/other paperwork and evaluating patient/reviewing data Coding Level of Care Code Acute Code for [facility] Fwd Diagnoses Acute paranoia F22 Acute psychosis F23 Psychotic disorder with delusions F29 Alcohol use disorder, mild, abuse F10.10 Cannabis use disorder, severe, dependence F12.20
[2023-11-19 12:46] VITALS: RESP 16
== END 2023-11-19 13:38 | disposition home or self-care (01) | DRG 885 ==
LOC: ER 13:30 → NP 14:26
PROVIDERS: Admitting Provider Psychiatry & Neurology Psychiatry; Emergency Provider Emergency Medicine; PCP Nurse Practitioner Family; Visit Provider Psychiatry & Neurology Psychiatry
DX: F22 Delusional disorders (principal); F41.8 Other specified anxiety disorders; F10.90 Alcohol use, unspecified, uncomplicated; F12.90 Cannabis use, unspecified, uncomplicated; Z72.0 Tobacco use
CPT/HCPCS: 36415; 80053; 80306; 80307; 85025; 93005; 97165; 99285